=== PATIENT | female | born 1965 | race Caucasian/White ===

== ENCOUNTER → 2019-08-08 | Outpatient (CLI) | payer BC ==
--- NOTE | 2019-08-08 17:58 | US ---
EXAMINATION TYPE: US venous doppler duplex LE DATE OF EXAM: 08/08/2019 5:43 PM COMPARISON: NONE CLINICAL HISTORY: I82.90 Acute embolism and thrombosis of unspecified vein. Edema bilateral legs, wor se on the left SIDE PERFORMED: Bilateral TECHNIQUE: The lower extremity deep venous system is examined utilizing real time linear array sonog red with graded compression, doppler sonography and color-flow sonography. VESSELS IMAGED: External Iliac Vein (EIV) Common Femoral Vein Deep Femoral Vein Greater Saphenous Vein * Femoral Vein Popliteal Vein Small Saphenous Vein * Proximal Calf Veins (* superficial vessels) Right Leg: No evidence of DVT Left Leg: No evidence of DVT IMPRESSION: 1. Bilateral lower extremity ultrasound negative for deep venous thrombosis.
== END | disposition home or self-care (01) ==
LOC: U 17:02
PROVIDERS: ATTEND Podiatrist Foot & Ankle Surgery
DX: I82.403 Acute embolism and thrombosis of unspecified deep veins of lower extremity, bilateral (principal)
CPT/HCPCS: 93970

== ENCOUNTER 2022-01-11 09:05 | Day surgery (SDC) | payer BC, OTHER ==
[2022-01-10 11:14] VITALS: BMI 40.0
[~2022-01-11 09:05] MED LIST: ALPRAZolam 0.25 MG TAB PO PRN; ALPRAZolam 0.5 MG TAB PO PRN; ASPIRIN 325 MG TAB PO STA; ATORVASTATIN 80 MG TAB PO STA; HEPARIN SODIUM,PORCINE 10,000 UNIT in SODIUM CHLORIDE 0.9% 1,000 ML IRRIGATION PRN; HEPARIN SODIUM,PORCINE 2,500 UNIT in SODIUM CHLORIDE 0.9% 250 ML IRRIGATION PRN; NITROGLYCERIN SL TABS 0.4 MG TAB SUBLINGUAL PRN
[2022-01-11 09:33] LABS: Glucose,Whole Blood 89 mg/dL (70-110)
[2022-01-11] MEDS ORDERED: SODIUM CHLORIDE 0.9% 1,000 ML IV ONE (09:55)
[2022-01-11] MEDS: SODIUM CHLORIDE 0.9% 1,000 ML in EMPTY BAG 1 BAG IV SCH ×3 (09:57→21:43)
[2022-01-11] MEDS ORDERED: fentaNYL (PF) 50 MCG/ML 2 ML AMP IV ONE (12:04)
[2022-01-11] MEDS ORDERED: LIDOCAINE 1% INJ 10MG/ML (30 ML VIAL-PF) SQ ONE (12:04)
[2022-01-11] MEDS ORDERED: MIDAZOLAM 2 MG/2 ML VIAL IV ONE (12:04)
[2022-01-11] MEDS ORDERED: VERAPAMIL SYRINGE (5 MG/10 ML) INTRAARTER ONE (12:08)
[2022-01-11] MEDS ORDERED: HEPARIN SODIUM 1,000 UN/ML (10ML VL) IV ONE (12:10)
[2022-01-11] MEDS ORDERED: IOPAMIDOL-370 125ML BTL INJ ONE (12:44)
[2022-01-11] MEDS ORDERED: IOPAMIDOL-370 100ML BTL INJ ONE (13:12)
[2022-01-11] MEDS ORDERED: RX INFO: IV CONTRAST WAS GIVEN 1 EACH MISC MISCELLANE PRN (13:51)
[2022-01-11] MEDS ORDERED: DEXTROSE 50% SYRINGE 50 ML IVP PRN ×4 (14:06→14:12)
[2022-01-11 14:16] LABS: Glucose,Whole Blood 68 mg/dL (70-110)
[2022-01-11 14:37] LABS: Glucose,Whole Blood 71 mg/dL (70-110)
[2022-01-11 15:09] LABS: Basophils % (A) 0 %; Eosinophils # (A) 0.2 k/uL (0-0.7); Eosinophils % (A) 3 %; HCT 33.7 % (34.0-46.0); HGB 10.4 gm/dL (11.4-16.0); Hypochromasia Moderate; Lymphocytes # (A) 2.4 k/uL (1.0-4.8); Lymphocytes % (A) 39 %; MCH 30.6 pg (25.0-35.0); MCHC 30.9 g/dL (31.0-37.0); MCV 98.8 fL (80.0-100.0); Mean Platelet Volume 9.1; Monocytes # (A) 0.4 k/uL (0-1.0); Monocytes % (A) 6 %; Neutrophils % (A) 49 %; Platelet Count 247 k/uL (150-450); RBC 3.41 m/uL (3.80-5.40); RDW 13.6 % (11.5-15.5)
[2022-01-11 15:18] LABS: ALT 27 U/L (4-34); AST 25 U/L (14-36); African American GFR (CKD) 7 (>60 ml/min/1.73 sqM); Albumin 3.9 g/dL (3.5-5.0); Albumin/Globulin Ratio 1.6; Alkaline Phosphatase 61 U/L (38-126); Anion Gap 15 mmol/L; Blood Urea Nitrogen 67 mg/dL (7-17); Calcium 9.1 mg/dL (8.4-10.2); Carbon Dioxide 24 mmol/L (22-30); Chloride 103 mmol/L (98-107); Globulin 2.4 g/dL; Glucose 60 mg/dL (74-99); Non-African American GFR(CKD) 6 (>60 ml/min/1.73 sqM); Potassium 4.7 mmol/L (3.5-5.1); Sodium 142 mmol/L (137-145); Total Bilirubin 0.2 mg/dL (0.2-1.3); Total Protein 6.3 g/dL (6.3-8.2)
[2022-01-11 17:14] LABS: Glucose,Whole Blood 132 mg/dL (70-110)
[2022-01-11] MEDS: SODIUM CHLORIDE 0.9% 1,000 ML IV SCH (18:15)
[2022-01-11] MEDS: INSULIN ASPART (NovoLOG) 100 UNIT/ML VIAL SQ SCH ×2 (18:16→20:43)
[2022-01-11] MEDS: SODIUM BICARBONATE TAB 650 MG TAB PO SCH ×2 (18:34→20:44)
[2022-01-11] MEDS: carvediloL 12.5 MG TAB PO SCH (18:34)
[2022-01-11 20:22] LABS: Glucose,Whole Blood 165 mg/dL (70-110)
[2022-01-11] MEDS: hydrALAZINE HCL 50 MG TAB PO SCH (20:43)
[2022-01-11] MEDS: FUROSEMIDE 40 MG TAB PO SCH (20:44)
[2022-01-11] MEDS: PARoxetine 20 MG TAB PO SCH (20:44)
[2022-01-11] MEDS ORDERED: INSULIN DETEMIR (LEVEMIR) 100 UNIT/ML SYR SQ SCH (21:00)
[2022-01-12 07:12] LABS: Glucose,Whole Blood 54 mg/dL (70-110)
[2022-01-12 08:06] LABS: Glucose,Whole Blood 81 mg/dL (70-110)
[2022-01-12] MEDS: INSULIN ASPART (NovoLOG) 100 UNIT/ML VIAL SQ SCH ×3 (08:22→19:44)
[2022-01-12 08:32] VITALS: RESP 18
[2022-01-12] MEDS ORDERED: lisinopriL 10 MG TAB PO SCH (09:00)
[2022-01-12] MEDS ORDERED: TIMOLOL 0.5% OPHTH DROPS 5 ML BTL BOTH EYES SCH (09:00)
[2022-01-12] MEDS ORDERED: SPIRONOLACTONE 25 MG TAB PO SCH (09:00)
[2022-01-12] MEDS ORDERED: prednisoLONE ACETATE 1% OPHTH DROPS 5 ML BTL BOTH EYES SCH (09:00)
[2022-01-12] MEDS ORDERED: ATORVASTATIN 20 MG TAB PO SCH (09:00)
[2022-01-12] MEDS ORDERED: amLODIPine 10 MG TAB PO SCH (09:00)
[2022-01-12] MEDS ORDERED: BRIMONIDINE TARTRATE 0.2% DROPS 5 ML BTL BOTH EYES SCH (09:00)
[2022-01-12] MEDS ORDERED: ASPIRIN 81 MG PO SCH (09:00)
[2022-01-12] MEDS ORDERED: PANTOPRAZOLE 40 MG TABLET PO SCH (09:00)
[2022-01-12] MEDS ORDERED: ATROPINE OPHTH SOLN 1% 5ML BTL BOTH EYES SCH (09:00)
[2022-01-12] MEDS: hydrALAZINE HCL 50 MG TAB PO SCH (09:21)
[2022-01-12] MEDS: PARoxetine 20 MG TAB PO SCH (09:21)
[2022-01-12] MEDS: SODIUM BICARBONATE TAB 650 MG TAB PO SCH ×3 (09:21→17:37)
[2022-01-12] MEDS: carvediloL 12.5 MG TAB PO SCH ×2 (09:21→17:37)
[2022-01-12] MEDS: FUROSEMIDE 40 MG TAB PO SCH (09:22)
[2022-01-12] MEDS: SODIUM CHLORIDE 0.9% 1,000 ML IV SCH (11:06)
[2022-01-12 12:21] LABS: Glucose,Whole Blood 128 mg/dL (70-110)
--- NOTE | 2022-01-12 14:08 | P.NPCON ---
History of Present Illness - Reason for Consult end stage renal disease - History of Present Illness Patient is a 56-year-old female with end-stage renal disease maintained on peritoneal dialysis. Patient was admitted to the hospital for cardiac catheterization which was performed. Detailed results are not available at this time. Patient has history of hypertension, type 2 diabetes, hypertension. No complaints of chest pains or shortness of breath currently No history of nausea vomiting abdominal pain or diarrhea. Review of Systems As per HPI. Past Medical History Past Medical History: CVA/TIA, Diabetes Mellitus, Dialysis, Eye Disorder, Hyperlipidemia, Hypertension, Renal Disease Additional Past Medical History / Comment(s): NIGHTLY CAPD. BLIND-DIABETIC RETINOPATHY. HX CVA AGE 39-SLIGHT LT SIDED WEAKNESS History of Any Multi-Drug Resistant Organisms: None Reported Past Surgical History: Cholecystectomy, Joint Replacement, Tubal Ligation Additional Past Surgical History / Comment(s): ERIK BX. PARTIAL KNEE REPLACEMENT (SIDE UNKNOWN). COLONOSCOPY. BILAT CATARACTS REMOVED WITH LENS IMPLANTS. PERITONEAL DIALYSIS CATH. MULTIPLE EYE SURGERIES Past Anesthesia/Blood Transfusion Reactions: No Reported Reaction Past Psychological History: Anxiety Smoking Status: Never smoker Past Alcohol Use History: None Reported Past Drug Use History: None Reported - Past Family History Father Family Medical History: Cancer Mother Family Medical History: Cancer Medications and Allergies Home Medications Medication Instructions Recorded Confirmed Type Atorvastatin [Lipitor] 20 mg PO DAILY 01/10/22 01/10/22 History Atropine Sulfate [Atropine Sulfate 1 applic BOTH EYES DAILY 01/10/22 01/11/22 History 1% Ophth Oint] Brimonidine Tartrate/Timolol 1 drop BOTH EYES DAILY 01/10/22 01/11/22 History [Combigan 0.2%-0.5% Eye Drops] Furosemide [Lasix] 40 mg PO BID 01/10/22 01/10/22 History Insulin Aspart [NovoLOG] 10 - 12 units SQ TID-W/MEALS 01/10/22 01/11/22 History Insulin Glargine,Hum.rec.anlog 40 units SQ HS 01/10/22 01/11/22 History [Lantus Solostar Pen] Omeprazole 40 mg PO DAILY 01/10/22 01/10/22 History PARoxetine [Paxil] 20 mg PO BID 01/10/22 01/10/22 History Prednisolone Acetate/Pf 1 drop BOTH EYES DAILY 01/10/22 01/11/22 History [Prednisolone Acet 1% Eye Drop] Sodium Bicarbonate Tab 650 mg PO ACHS 01/10/22 01/10/22 History Spironolactone 25 mg PO DAILY 01/10/22 01/10/22 History amLODIPine [Norvasc] 10 mg PO DAILY 01/10/22 01/10/22 History calcitrioL [Calcitriol] 0.25 mcg PO MOWEFR 01/10/22 01/10/22 History carvediloL [Coreg] 25 mg PO BID 01/10/22 01/10/22 History hydrALAZINE HCL [Apresoline] 50 mg PO BID 01/10/22 01/10/22 History lisinopriL [Zestril] 10 mg PO DAILY 01/10/22 01/11/22 History Aspirin EC [Ecotrin] 325 mg PO ONCE 01/11/22 01/11/22 History Allergies Allergy/AdvReac Type Severity Reaction Status Date / Time No Known Allergies Allergy Verified 01/11/22 09:46 Physical Exam Vitals: Vital Signs Temp Pulse Resp BP BP BP Pulse Ox 01/12/22 07:00 97.6 F 73 18 174/80 93 L 01/12/22 03:00 97.5 F L 68 17 136/82 96 01/11/22 19:11 97.8 F 74 16 167/78 97 01/11/22 16:30 69 17 147/80 99 01/11/22 15:31 67 17 152/88 96 01/11/22 15:02 69 16 179/87 98 01/11/22 14:31 71 16 163/77 96 01/11/22 14:16 67 17 170/76 96 Intake and Output 01/11/22 01/12/22 01/12/22 22:59 06:59 14:59 Intake Total 118 Balance 118 Intake: Oral 118 Other: Voiding Method Toilet Toilet # Voids 1 1 Awake, comfortable, not in any acute distress Examination of the heart S1 and S2 Examination of the lungs bilateral breath sounds are heard Abdomen is soft nontender obese Examination of the lower extremity shows no significant edema 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 End-stage renal disease on peritoneal dialysis 2. Status post cardiac cath 3. CK D mineral bone disorder 4. Hypertension with C daily stage V Plan: Start manual exchanges and patient can resume her cyclers tonight. Continue current home medications DC IV fluids next Thank you for the consultation. We will continue to follow the patient with you during her hospitalization
[2022-01-12] MEDS: SODIUM CHLORIDE 0.9% 1,000 ML in EMPTY BAG 1 BAG IV SCH (14:26)
[2022-01-12] MEDS: DIALYSIS (PERIT 1.5%) 2,500 ML 37.5 G/2,500 ML BAG INTRAPERIT SCH ×2 (14:27→18:13)
[2022-01-12 14:58] VITALS: BP 156/78; PULSE 80; TEMP 98.3
[2022-01-12 17:19] LABS: Glucose,Whole Blood 176 mg/dL (70-110)
--- NOTE | 2022-01-12 22:46 | CONS ---
CONSULTATION PROCEDURES PERFORMED: Left heart catheterization and coronary angiogram. HOSPITAL COURSE: This is 56-year-old lady with history of end-stage renal disease on peritoneal dialysis, who underwent a stress test as part of preop cardiac evaluation and that was abnormal showing ischemia in the anterior wall. The patient did not undergo cardiac catheterization at that time as she had renal failure, but was not started on dialysis yet. Currently, she is on peritoneal dialysis, hence decided to proceed with cardiac catheterization. We initially attempted a right radial artery catheterization, but because of technical challenges and inability to engage the left coronary artery, we performed a right femoral arterial access and cardiac catheterization that way but she has coronary artery disease. She did not have significant obstructive CAD needing any interventions at this time and our plan is to treat her with medical therapy. This morning she is doing well. Her blood pressure is elevated. We just give her morning medications. Unfortunately, she did not receive any peritoneal dialysis in spite of my communication to do peritoneal dialysis yesterday afternoon. I am going to do peritoneal dialysis today and then she will go home after that. PHYSICAL EXAMINATION: VITAL SIGNS: She is afebrile. Heart rate is 73 beats per minute. Blood pressure is 170/82, respiratory rate is 18, O2 saturation is 93% on room air. CHEST: Exam reveals good air entry bilaterally. HEART: Exam reveals first and second heart sounds. No gallop. GENITOURINARY: Right radial artery access site appears normal. Right femoral arterial access site is free of bleeding, bruit, hematoma. Foot pulses are intact. LABORATORY DATA: We do not have any labs from this morning. DISCHARGE MEDICATION: She will go home on the medications that she came on with. FOLLOWUP: She will be followed up in my office in 2 weeks time. The patient will be dialyzed prior to discharge. MMODL / IJN: [id number] /
--- NOTE | 2022-01-12 23:46 | CC ---
CARDIAC CATHETERIZATION REPORT INDICATION: Abnormal stress test. PROCEDURE NOTE: After obtaining informed consent, left heart catheterization and coronary angiogram were performed using right radial and right femoral arterial axis. I initially obtained right radial artery access using a Seldinger technique, and catheters and wires were floated into the ascending aorta under fluoroscopic guidance. The patient received verapamil and IV heparin per protocol. We were able to engage the right coronary artery using the right Josephine catheter and hemodynamics were also obtained the same day. However, in spite of going through multiple catheter exchanges, we could not engage the left coronary artery selectively. Following my attempts, Dr. Reagan, the on-call project construction assistant manager, also came and tried and he could not get selective pictures of the left coronary artery. He used a guide and multiple different catheters, details of which will be found in the slab off mill tender procedure note. After this, I obtained right femoral arterial access uneventfully and completed the procedure that way and optimal angiograms were obtained. The patient tolerated the procedure well without any obvious immediate complications. A femoral angiogram was performed and Angio-Seal was deployed for hemostasis. Patient received moderate conscious sedation. Total sedation time was 16 minutes. Right radial artery access, the patient had a TR band placed over the right radial artery for hemostasis. FINDINGS: 1. Hemodynamics: Left ventricular end-diastolic pressure is 14 mm. There is no significant gradient across the aortic valve. 2. Left ventriculogram: Left ventriculogram was not performed. 3. Angiographic data: a.Right coronary artery: Right coronary artery appears calcified. There is a focal area of stenosis involving the ostial portion of the PLV branch. It has moderate to severe stenosis. b.Left coronary artery: Left main coronary artery appears calcified but is free of significant stenosis, divides into left anterior descending coronary artery and circumflex coronary artery. c.Circumflex coronary artery is a codominant system that is calcified, it shows [id number] atherosclerotic plaque involving the OM branch without focal areas of stenosis. d.LAD shows a 30% to 40% stenosis in its midportion and involving the diagonal branch, but again no focal stenotic lesions. CONCLUSIONS: 1. Heavily calcified coronary arteries. 2. Ksxshwwg-[id number] stenosis involving the ostial portion of the posterior left ventricular branch. 3. Nxbo-[id number] disease involving circumflex coronary artery and left anterior descending. PLAN: Patient will be treated with optimal medical therapy. MMODL / IJN: [id number] /
== END 2022-01-12 19:30 | disposition home or self-care (01) ==
LOC: CATHCVL 09:05 → 6NMEDSUR 13:22 → CATHCVL 01-12 19:30
PROVIDERS: ATTEND Internal Medicine Cardiovascular Disease
DX: I25.10 Atherosclerotic heart disease of native coronary artery without angina pectoris (principal)
CPT/HCPCS: 93458; 80053; 85025; C1769 ×3; C1760; C1887 ×2; C1894 ×2; J2250; J2001; A4722; J3010; J1644; Q9967 ×2

== ENCOUNTER 2022-02-21 02:43 | Observation (INO) | payer OTHER ==
--- NOTE | 2022-02-21 04:56 | ED ---
General Adult HPI - General Chief complaint: Weakness Stated complaint: Chest pain, SOB Time Seen by Provider: 02/21/22 02:56 Source: patient Mode of arrival: wheelchair - History of Present Illness Initial comments: 56-year-old female presents emergency department with reported chest pain with radiation into the neck. States her symptoms started last week. She was having bilateral neck discomfort and ended up seeing her chiropractor and PCP. PCP performed x-rays of her neck which were read as negative. They placed her on Tylenol 3. She saw her chiropractor on Sunday. States that she did have some improvement in her pain on Sunday. Had a repeat appointment with the chiropractor on Sunday and states that this exacerbated her symptoms. She describes the pain as an epigastric burning discomfort which radiates into the bilateral aspects of her neck. No provocative factors. She admits to associated generalized weakness. No fevers. No changes in her bowel habits. She is a peritoneal dialysis patient and continues to make urine. Last night the patient lay down and did 2 cycles of her dialysis. Pain was so intense that she had to stop and decided to come into the ER for evaluation. She had a heart cath 2 weeks ago which was negative for critical stenosis. No alleviating, precipitating or modifying factors - Related Data Home Medications Medication Instructions Recorded Confirmed Atorvastatin [Lipitor] 20 mg PO DAILY 01/10/22 02/21/22 Atropine Sulfate [Atropine Sulfate 1 applic RIGHT EYE DAILY PRN 01/10/22 1% Ophth Oint] Brimonidine Tartrate/Timolol 1 drop RIGHT EYE BID 01/10/22 02/21/22 [Combigan 0.2%-0.5% Eye Drops] PARoxetine [Paxil] 20 mg PO BID 01/10/22 02/21/22 amLODIPine [Norvasc] 10 mg PO DAILY 01/10/22 02/21/22 calcitrioL [Calcitriol] 0.25 mcg PO MOWEFR 01/10/22 02/21/22 carvediloL [Coreg] 25 mg PO BID 01/10/22 02/21/22 Acetaminophen [Tylenol] 325 mg PO Q4H PRN 02/21/22 02/21/22 Furosemide [Lasix] 80 mg PO BID 02/21/22 02/21/22 Insulin Aspart [NovoLOG Flexpen] See Protocol SQ AC-TID 02/21/22 02/21/22 L.acidoph,Paracasei, B.lactis 1 cap PO Q2D 02/21/22 02/21/22 [Probiotic] Lanthanum Carbonate [Lanthanum 1,000 mg PO AC-TID 02/21/22 02/21/22 Carbonate Chew] Lanthanum Carbonate [Lanthanum 500 mg PO DIRECTED PRN 02/21/22 02/21/22 Carbonate Chew] Previous Rx's Medication Instructions Recorded Pantoprazole [Protonix] 40 mg PO AC-BID #60 tab 02/23/22 Insulin Glargine,Hum.rec.anlog 26 units SQ HS #0 02/24/22 [Lantus Solostar Pen] Metoclopramide [Reglan] 10 mg PO AC-TID #42 tab 02/24/22 Allergies Allergy/AdvReac Type Severity Reaction Status Date / Time No Known Allergies Allergy Verified 02/21/22 08:50 Review of Systems ROS Statement: Those systems with pertinent positive or pertinent negative responses have been documented in the HPI. ROS Other: All systems not noted in ROS Statement are negative. Past Medical History Past Medical History: CVA/TIA, Diabetes Mellitus, Dialysis, Eye Disorder, Hyperlipidemia, Hypertension, Renal Disease Additional Past Medical History / Comment(s): NIGHTLY CAPD. BLIND-DIABETIC R ETINOPATHY. HX CVA AGE 39-SLIGHT LT SIDED WEAKNESS History of Any Multi-Drug Resistant Organisms: None Reported Past Surgical History: Cholecystectomy, Joint Replacement, Tubal Ligation Additional Past Surgical History / Comment(s): KIDENY BX. PARTIAL KNEE REPLACEMENT (SIDE UNKNOWN). COLONOSCOPY. BILAT CATARACTS REMOVED WITH LENS IMPLANTS. PERITONEAL DIALYSIS CATH. MULTIPLE EYE SURGERIES Past Anesthesia/Blood Transfusion Reactions: No Reported Reaction Past Psychological History: Anxiety Smoking Status: Never smoker Past Alcohol Use History: None Reported Past Drug Use History: None Reported - Past Family History Father Family Medical History: Cancer Mother Family Medical History: Cancer General Exam General appearance: alert, in no apparent distress Head exam: Present: atraumatic, normocephalic, normal inspection Eye exam: Present: normal appearance, PERRL, EOMI. Absent: scleral icterus, conjunctival injection, periorbital swelling ENT exam: Present: normal exam, mucous membranes moist Neck exam: Present: normal inspection. Absent: tenderness, meningismus, lymphadenopathy Respiratory exam: Present: normal lung sounds bilaterally. Absent: respiratory distress, wheezes, rales, rhonchi, stridor Cardiovascular Exam: Present: regular rate, normal rhythm, normal heart sounds. Absent: systolic murmur, diastolic murmur, rubs, gallop, clicks GI/Abdominal exam: Present: soft, normal bowel sounds, other (catheter in place left abdomen. drainage is clear). Absent: distended, tenderness, guarding, rebound, rigid Extremities exam: Present: normal inspection, full ROM, normal capillary refill. Absent: tenderness, pedal edema, joint swelling, calf tenderness Back exam: Present: normal inspection Neurological exam: Present: alert, oriented X3, CN II-XII intact Psychiatric exam: Present: normal affect, normal mood Skin exam: Present: warm, dry, intact, normal color. Absent: rash Course Vital Signs 02/21/22 02/21/22 02/21/22 02:47 03:06 05:17 Temperature 98 F 98.2 F 98.4 F Pulse Rate 71 69 70 Respiratory 18 18 16 Rate Blood Pressure 131/74 118/93 152/76 O2 Sat by Pulse 98 100 96 Oximetry 02/21/22 02/21/22 07:10 09:55 Temperature Pulse Rate 71 68 Respiratory 18 18 Rate Blood Pressure 141/76 154/90 O2 Sat by Pulse 93 L 95 Oximetry EKG Findings - EKG Comments: EKG Findings:: EKG demonstrates sinus rhythm with a rate of 67. IL interval 153. QRS 84. QTC of 417. Inverted T waves in 2, 3, aVF. No acute ST segment elevations. EKG was interpreted by myself Medical Decision Making - Medical Decision Making Arrival patient was placed into room 9. Thorough history and physical exam is performed. She is placed on continuous pulse ox and cardiac monitoring. 12- lead EKG was obtained. IV is established laboratory studies are conducted. Laboratory studies are reviewed by myself. BUN 109. Creatinine 11.9. Remainin g labs within normal limits. I did call and speak with radiology in regards to performing imaging studies on the patient using contrast. Dr. Barrow recommends CT without contrast imaging due to her peritoneal dialysis status. Imaging is performed which is negative for any acute process. Patient did receive 4 mg of morphine for her chest pain and reports improvement. I did discuss diagnosis, differential and treatment options. Patient agreeable to admission for cardiac evaluation. I will also place GI consult. Patient remained in stable condition awaiting a bed on the floor - Lab Data Result diagrams: 02/22/22 04:14 02/22/22 04:14 Lab Results 02/21/22 02/21/22 02/21/22 Range/Units 05:00 05:00 05:00 WBC 11.7 H (3.8-10.6) k/uL RBC 3.58 L (3.80-5.40) m/uL Hgb 11.2 L (11.4-16.0) gm/dL Hct 35.4 (34.0-46.0) % MCV 99.1 (80.0-100.0) fL MCH 31.2 (25.0-35.0) pg MCHC 31.5 (31.0-37.0) g/dL RDW 13.9 (11.5-15.5) % Plt Count 326 (150-450) k/uL MPV 9.7 Neutrophils % 88 % Lymphocytes % 8 % Monocytes % 4 % Eosinophils % 0 % Basophils % 0 % Neutrophils # 10.3 H (1.3-7.7) k/uL Lymphocytes # 0.9 L (1.0-4.8) k/uL Monocytes # 0.4 (0-1.0) k/uL Eosinophils # 0.0 (0-0.7) k/uL Basophils # 0.0 (0-0.2) k/uL Hypochromasia Moderate PT 9.6 (9.0-12.0) sec INR 0.9 (<1.2) APTT 25.1 (22.0-30.0) sec Sodium 140 (137-145) mmol/L Potassium 4.8 (3.5-5.1) mmol/L Chloride 97 L (98-107) mmol/L Carbon Dioxide 22 (22-30) mmol/L Anion Gap 21 mmol/L BUN 109 H* (7-17) mg/dL Creatinine 11.92 H* (0.52-1.04) mg/dL Est GFR (CKD-EPI)AfAm 4 (>60 ml/min/1.73 sqM) Est GFR (CKD-EPI)NonAf 3 (>60 ml/min/1.73 sqM) Glucose 150 H (74-99) mg/dL Plasma Lactic Acid Mejia (0.7-2.0) mmol/L Calcium 9.3 (8.4-10.2) mg/dL Total Bilirubin 0.5 (0.2-1.3) mg/dL AST 18 (14-36) U/L ALT 22 (4-34) U/L Alkaline Phosphatase 68 (38-126) U/L Troponin I (0.000-0.034) ng/mL Total Protein 6.9 (6.3-8.2) g/dL Albumin 4.3 (3.5-5.0) g/dL Lipase 266 (23-300) U/L Coronavirus (PCR) (Not Detectd) Influenza Type A RNA (Not Detectd) Influenza Type B (PCR) (Not Detectd) 02/21/22 02/21/22 02/21/22 Range/Units 05:00 05:00 05:04 WBC (3.8-10.6) k/uL RBC (3.80-5.40) m/uL Hgb (11.4-16.0) gm/dL Hct (34.0-46.0) % MCV (80.0-100.0) fL MCH (25.0-35.0) pg MCHC (31.0-37.0) g/dL RDW (11.5-15.5) % Plt Count (150-450) k/uL MPV Neutrophils % % Lymphocytes % % Monocytes % % Eosinophils % % Basophils % % Neutrophils # (1.3-7.7) k/uL Lymphocytes # (1.0-4.8) k/uL Monocytes # (0-1.0) k/uL Eosinophils # (0-0.7) k/uL Basophils # (0-0.2) k/uL Hypochromasia PT (9.0-12.0) sec INR (<1.2) APTT (22.0-30.0) sec Sodium (137-145) mmol/L Potassium (3.5-5.1) mmol/L Chloride (98-107) mmol/L Carbon Dioxide (22-30) mmol/L Anion Gap mmol/L BUN (7-17) mg/dL Creatinine (0.52-1.04) mg/dL Est GFR (CKD-EPI)AfAm (>60 ml/min/1.73 sqM) Est GFR (CKD-EPI)NonAf (>60 ml/min/1.73 sqM) Glucose (74-99) mg/dL Plasma Lactic Acid Mejia 0.9 (0.7-2.0) mmol/L Calcium (8.4-10.2) mg/dL Total Bilirubin (0.2-1.3) mg/dL AST (14-36) U/L ALT (4-34) U/L Alkaline Phosphatase (38-126) U/L Troponin I 0.030 (0.000-0.034) ng/mL Total Protein (6.3-8.2) g/dL Albumin (3.5-5.0) g/dL Lipase (23-300) U/L Coronavirus (PCR) (Not Detectd) Influenza Type A RNA Not Detected (Not Detectd) Influenza Type B (PCR) Not Detected (Not Detectd) 02/21/22 Range/Units 05:04 WBC (3.8-10.6) k/uL RBC (3.80-5.40) m/uL Hgb (11.4-16.0) gm/dL Hct (34.0-46.0) % MCV (80.0-100.0) fL MCH (25.0-35.0) pg MCHC (31.0-37.0) g/dL RDW (11.5-15.5) % Plt Count (150-450) k/uL MPV Neutrophils % % Lymphocytes % % Monocytes % % Eosinophils % % Basophils % % Neutrophils # (1.3-7.7) k/uL Lymphocytes # (1.0-4.8) k/uL Monocytes # (0-1.0) k/uL Eosinophils # (0-0.7) k/uL Basophils # (0-0.2) k/uL Hypochromasia PT (9.0-12.0) sec INR (<1.2) APTT (22.0-30.0) sec Sodium (137-145) mmol/L Potassium (3.5-5.1) mmol/L Chloride (98-107) mmol/L Carbon Dioxide (22-30) mmol/L Anion Gap mmol/L BUN (7-17) mg/dL Creatinine (0.52-1.04) mg/dL Est GFR (CKD-EPI)AfAm (>60 ml/min/1.73 sqM) Est GFR (CKD-EPI)NonAf (>60 ml/min/1.73 sqM) Glucose (74-99) mg/dL Plasma Lactic Acid Mejia (0.7-2.0) mmol/L Calcium (8.4-10.2) mg/dL Total Bilirubin (0.2-1.3) mg/dL AST (14-36) U/L ALT (4-34) U/L Alkaline Phosphatase (38-126) U/L Troponin I (0.000-0.034) ng/mL Total Protein (6.3-8.2) g/dL Albumin (3.5-5.0) g/dL Lipase (23-300) U/L Coronavirus (PCR) Not Detected (Not Detectd) Influenza Type A RNA (Not Detectd) Influenza Type B (PCR) (Not Detectd) Disposition Clinical Impression: Chest pain, Epigastric pain Narrative: Chest pain Disposition: ADMITTED IP TO THIS HOSP Condition: Stable Is patient prescribed a controlled substance at d/c from ED?: No Time of Disposition: 08:05 Decision to Admit Reason: Admit from EC Decision Date: 02/21/22 Decision Time: 08:05
[2022-02-21] MEDS ORDERED: MORPHINE SULFATE 4 MG/ML SYRINGE IVP STA (04:57)
[2022-02-21] MEDS ORDERED: ONDANSETRON 4 MG/2 ML VIAL IVP STA (04:59)
[2022-02-21 05:24] LABS: Basophils % (A) 0 %; Eosinophils % (A) 0 %; HCT 35.4 % (34.0-46.0); HGB 11.2 gm/dL (11.4-16.0); Hypochromasia Moderate; Lymphocytes # (A) 0.9 k/uL (1.0-4.8); Lymphocytes % (A) 8 %; MCH 31.2 pg (25.0-35.0); MCHC 31.5 g/dL (31.0-37.0); MCV 99.1 fL (80.0-100.0); Mean Platelet Volume 9.7; Monocytes # (A) 0.4 k/uL (0-1.0); Monocytes % (A) 4 %; Neutrophils # (A) 10.3 k/uL (1.3-7.7); Neutrophils % (A) 88 %; Platelet Count 326 k/uL (150-450); RBC 3.58 m/uL (3.80-5.40); RDW 13.9 % (11.5-15.5); WBC 11.7 k/uL (3.8-10.6)
[2022-02-21 05:27] LABS: Albumin 4.3 g/dL (3.5-5.0); Calcium 9.3 mg/dL (8.4-10.2); Potassium 4.8 mmol/L (3.5-5.1); Total Bilirubin 0.5 mg/dL (0.2-1.3); Total Protein 6.9 g/dL (6.3-8.2)
[2022-02-21 05:28] LABS: INR 0.9 (<1.2); Partial Thromboplastin Time 25.1 sec (22.0-30.0); Prothrombin Time 9.6 sec (9.0-12.0)
--- NOTE | 2022-02-21 05:59 | CT ---
EXAMINATION TYPE: CT ChestAbdPelvis wo con DATE OF EXAM: 02/21/2022 COMPARISON: None HISTORY: SOB, weakness, burning epigastric pain. CT DLP: 975.4 mGycm Automated exposure control for dose reduction was used. Images obtained from the thoracic inlet to the floor the pelvis with no contrast. There is some pre-e xisting contrast material in the large bowel. The lungs are clear of consolidation. There is minimal subsegmental atelectasis at the left lung base . No pleural effusion. No mediastinal adenopathy. Heart size is normal. No pericardial effusion. Ther e are no hilar masses. There is some coronary artery calcification. Liver spleen pancreas appear intact. There is distended fluid filled stomach. There are clips from ch olecystectomy. The bowel gas are not dilated. No evidence of pancreatitis. There is atherosclerotic m oderate vascular calcification in the abdomen. There is no adrenal mass. Kidneys have normal size. No hydronephrosis. Ureters are not dilated. No re troperitoneal adenopathy. Bladder distends smoothly. No free fluid in the pelvis. No pelvic mass. [place] is anteverted. The thoracic and lumbar vertebra have normal alignment. No compression fracture. The sternum is intac t. No evidence of hip fracture. The bony pelvis is intact. There is no mesenteric edema. No ascites or free air. No sign of a bowel obstruction. Appendix is pos terior and appears normal. There is a broad-based umbilical hernia that contains fat. There is perito narciso dialysis catheter noted. IMPRESSION: No acute abnormality in the abdomen and pelvis. Normal appendix. No evidence of pancreatitis. Extensi ve atherosclerotic vascular disease in the abdomen pelvis. Minimal scarring or subsegmental atelectasis at the left lung base. No suspicious pulmonary mass.
[2022-02-21] MEDS ORDERED: NALOXONE 0.4 MG/ML 1 ML VIAL IV PRN (08:07)
[2022-02-21] MEDS: SODIUM CHLORIDE 0.9% 1,000 ML IV SCH ×2 (09:20→20:30)
[2022-02-21 09:28] LABS: Glucose,Whole Blood 159 mg/dL (70-110)
[2022-02-21] MEDS ORDERED: ATROPINE OPHTH SOLN 1% 5ML BTL RIGHT EYE PRN (10:01)
[2022-02-21] MEDS ORDERED: PANTOPRAZOLE 40 MG TABLET PO SCH (10:15)
[2022-02-21] MEDS: ASPIRIN 81 MG PO SCH (11:13)
[2022-02-21] MEDS: carvediloL 12.5 MG TAB PO SCH ×2 (11:14→21:32)
[2022-02-21] MEDS: PARoxetine 20 MG TAB PO SCH ×2 (11:14→20:28)
[2022-02-21] MEDS: amLODIPine 10 MG TAB PO SCH (11:14)
[2022-02-21] MEDS: ATORVASTATIN 20 MG TAB PO SCH (11:14)
[2022-02-21] MEDS: BRIMONIDINE TARTRATE 0.2% DROPS 5 ML BTL RIGHT EYE SCH ×2 (11:15→20:27)
[2022-02-21] MEDS: TIMOLOL 0.5% OPHTH DROPS 5 ML BTL RIGHT EYE SCH ×2 (11:17→20:27)
[2022-02-21] MEDS: prednisoLONE ACETATE 1% OPHTH DROPS 5 ML BTL RIGHT EYE SCH ×3 (11:17→21:33)
[2022-02-21] MEDS: CALCIUM CARBONATE LIQUID 500 MG/5 ML CUP PO SCH ×2 (11:34→18:33)
[2022-02-21] MEDS ORDERED: DIALYSIS (PERIT 1.5%) 2,500 ML 37.5 G/2,500 ML BAG INTRAPERIT SCH ×2 (12:00)
--- NOTE | 2022-02-21 12:05 | P.NPCON ---
History of Present Illness - Reason for Consult end stage renal disease - History of Present Illness Patient is a 56-year-old female with end-stage renal disease maintained on peritoneal dialysis. She is admitted to the hospital with complaints of chest pain and increased weakness. Patient denies any abdominal pain. She states that her dialysis fluid has been clear. Troponin was negative Patient has been cleared from cardiology standpoint. The stress test has been ordered. No history of nausea vomiting or abdominal pain, cough or fever. Review of Systems As per HPI Past Medical History Past Medical History: CVA/TIA, Diabetes Mellitus, Dialysis, Eye Disorder, Hyperlipidemia, Hypertension, Renal Disease Additional Past Medical History / Comment(s): NIGHTLY CAPD. BLIND-DIABETIC RETINOPATHY. HX CVA AGE 39-SLIGHT LT SIDED WEAKNESS History of Any Multi-Drug Resistant Organisms: None Reported Past Surgical History: Cholecystectomy, Joint Replacement, Tubal Ligation Additional Past Surgical History / Comment(s): ERIK BX. PARTIAL KNEE REPLACEMENT (SIDE UNKNOWN). COLONOSCOPY. BILAT CATARACTS REMOVED WITH LENS IMPLANTS. PERITONEAL DIALYSIS CATH. MULTIPLE EYE SURGERIES Past Anesthesia/Blood Transfusion Reactions: No Reported Reaction Smoking Status: Never smoker - Past Family History Father Family Medical History: Cancer Additional Family Medical History / Comment(s): Laryngeal cancer. Mother Family Medical History: Cancer Additional Family Medical History / Comment(s): Ovarian cancer Medications and Allergies Home Medications Medication Instructions Recorded Confirmed Type Atorvastatin [Lipitor] 20 mg PO DAILY 01/10/22 02/21/22 History Atropine Sulfate [Atropine Sulfate 1 applic RIGHT EYE DAILY PRN 01/10/22 02/21/22 History 1% Ophth Oint] Brimonidine Tartrate/Timolol 1 drop RIGHT EYE BID 01/10/22 02/21/22 History [Combigan 0.2%-0.5% Eye Drops] Insulin Glargine,Hum.rec.anlog 40 units SQ HS 01/10/22 02/21/22 History [Lantus Solostar Pen] Omeprazole 40 mg PO DAILY 01/10/22 02/21/22 History PARoxetine [Paxil] 20 mg PO BID 01/10/22 02/21/22 History Prednisolone Acetate/Pf 1 drop RIGHT EYE TID 01/10/22 02/21/22 History [Prednisolone Acet 1% Eye Drop] amLODIPine [Norvasc] 10 mg PO DAILY 01/10/22 02/21/22 History calcitrioL [Calcitriol] 0.25 mcg PO MOWEFR 01/10/22 02/21/22 History carvediloL [Coreg] 25 mg PO BID 01/10/22 02/21/22 History hydrALAZINE HCL [Apresoline] 50 mg PO TID 01/10/22 02/21/22 History lisinopriL [Zestril] 10 mg PO DAILY 01/10/22 02/21/22 History Acetaminophen [Tylenol] 325 mg PO Q4H PRN 02/21/22 02/21/22 History Docusate Oral Soln [Colace Oral 100 mg PO DAILY PRN 02/21/22 02/21/22 History Soln] Docusate [Colace] 100 mg PO DAILY PRN 02/21/22 02/21/22 History Furosemide [Lasix] 80 mg PO BID 02/21/22 02/21/22 History Insulin Aspart [NovoLOG Flexpen] See Protocol SQ AC-TID 02/21/22 02/21/22 History L.acidoph,Paracasei, B.lactis 1 cap PO Q2D 02/21/22 02/21/22 History [Probiotic] Lanthanum Carbonate [Lanthanum 1,000 mg PO AC-TID 02/21/22 02/21/22 History Carbonate Chew] Lanthanum Carbonate [Lanthanum 500 mg PO DIRECTED PRN 02/21/22 02/21/22 History Carbonate Chew] predniSONE See Taper PO DIRECTED 02/21/22 02/21/22 History Allergies Allergy/AdvReac Type Severity Reaction Status Date / Time No Known Allergies Allergy Verified 02/21/22 08:50 Physical Exam Vitals: Vital Signs Temp Pulse Pulse Resp BP BP Pulse Ox 02/21/22 10:22 97.6 F 68 16 144/78 96 02/21/22 09:55 68 18 154/90 95 02/21/22 07:10 71 18 141/76 93 L 02/21/22 05:17 98.4 F 70 16 152/76 96 02/21/22 03:06 98.2 F 69 18 118/93 100 02/21/22 02:47 98 F 71 18 131/74 98 Intake and Output 02/20/22 02/21/22 02/21/22 22:59 06:59 14:59 Other: Voiding Method CAPD Weight 86.183 kg 86.183 kg Patient is awake, comfortable, in no acute distress Examination of the heart S1 and S2 Examination of the lungs decreased breath sounds at the bases Abdomen is soft nontender Examination lower extremity shows trace edema right leg no significant edema noted in the left leg. RIGHT OF WAY BUYER exam grossly intact Results - Lab Results Most recent lab results Calcium 9.3 mg/dL (8.4-10.2) 02/21/22 05:00 02/21/22 05:00 02/21/22 05:00 Assessment and Plan Assessment: 1. End-stage renal disease on peritoneal dialysis 2. Chest pain no evidence of cardiac etiology. Stress test has been ordered 3. CK D mineral bone disorder 4. Hypertension with CK D stage IV Plan: Resume peritoneal dialysis. Increase UF 2.5% solution. Resume home meds including calcitriol Check PD fluid for cell count and culture next Thank you for the consultation. We will continue to follow the patient with you during her hospitalization.
[2022-02-21 12:18] LABS: Glucose,Whole Blood 184 mg/dL (70-110)
[2022-02-21] MEDS: DIALYSIS (PERIT 2.5%) 2,500 ML 62.5 G/2,500 ML BAG INTRAPERIT SCH (12:20)
[2022-02-21] MEDS: ACETAMINOPHEN TAB 325 MG TAB PO PRN (12:50)
[2022-02-21] MEDS ORDERED: DEXTROSE 50% SYRINGE 50 ML IVP PRN ×2 (14:01)
[2022-02-21 14:19] LABS: Glucose,Whole Blood 251 mg/dL (70-110)
[2022-02-21] MEDS: INSULIN ASPART (NovoLOG) 100 UNIT/ML VIAL SQ SCH ×3 (14:38→20:49)
[2022-02-21 15:05] VITALS: BMI 31.6
--- NOTE | 2022-02-21 15:22 | P.CONS ---
History of Present Illness - Reason for Consult Consult date: 02/21/22 Epigastric pain Requesting physician: Junaid Espinoza - Chief Complaint Chest pain - History of Present Illness This is a pleasant 56-year-old female who presented to the emergency department with complaints of weakness, chest pain, and pain radiating into her neck. Patient states the pain has been going on for the last 2 days duration. She has a past medical history including end-stage renal disease on peritoneal dialysis, coronary artery disease, blindness. Patient states symptoms started since last Sunday, which she is having intermittent pain with swallowing. She states is in the epigastric region. She states otherwise her pain is in her chest and across her chest and will radiate up to her neck as well. She states she feels increasingly weak as well and short of breath. States that she recently was having neck and back pain and went to see a chiropractor. Last Sunday she saw the chiropractor again for another adjustment and states the pain has been worse since then. She is tender to touch along her chest wall. She also had a cardiac catheterization approximately 2 weeks ago which she states that there was some narrowing but she did not have to undergo cyst stenting. She denies any difficulty with food getting stuck when she is swallowing, no nausea or vomiting. No previous EGD in the past or history of peptic ulcer disease. States she had a colonoscopy within the last 4 years done at [facility] which was normal. She had a CT of the abdomen and pelvis with no acute findings in the abdomen. Review of Systems REVIEW OF SYSTEMS: CARDIOPULMONARY: Chest pain, shortness of breath. Dyspnea with exertion. Weakness. Gastrointestinal: Pain with swallowing in the epigastric region. No nausea or vomiting. No hematemesis, coffee-ground emesis. No rectal bleeding, or melena. GENITOURINARY: No dysuria or hematuria. MUSCULOSKELETAL: Reports normal range of motion., Joint pain. SKIN: No rashes. No jaundice. ENDOCRINE: No chills, fevers. No excessive weight gain or loss. No polydipsia or polyuria. PSYCHIATRIC: Unremarkable. NEUROLOGY: No change in mental status. Denies dizziness, headache. ENT: Vision unremarkable. CONSTITUTIONAL: No recent weight loss. No fever, chills, night sweats. Past Medical History Past Medical History: CVA/TIA, Diabetes Mellitus, Dialysis, Eye Disorder, Hyperlipidemia, Hypertension, Renal Disease Additional Past Medical History / Comment(s): NIGHTLY CAPD. BLIND-DIABETIC RETINOPATHY. HX CVA AGE 39-SLIGHT LT SIDED WEAKNESS History of Any Multi-Drug Resistant Organisms: None Reported Past Surgical History: Cholecystectomy, Joint Replacement, Tubal Ligation Additional Past Surgical History / Comment(s): ELISAENTristin BX. PARTIAL KNEE REPLACEMENT (SIDE UNKNOWN). COLONOSCOPY. BILAT CATARACTS REMOVED WITH LENS IMPLANTS. PERITONEAL DIALYSIS CATH. MULTIPLE EYE SURGERIES Past Anesthesia/Blood Transfusion Reactions: No Reported Reaction Smoking Status: Never smoker - Past Family History Father Family Medical History: Cancer Additional Family Medical History / Comment(s): Laryngeal cancer. Mother Family Medical History: Cancer Additional Family Medical History / Comment(s): Ovarian cancer Medications and Allergies Home Medications Medication Instructions Recorded Confirmed Type Atorvastatin [Lipitor] 20 mg PO DAILY 01/10/22 02/21/22 History Atropine Sulfate [Atropine Sulfate 1 applic RIGHT EYE DAILY PRN 01/10/22 02/21/22 History 1% Ophth Oint] Brimonidine Tartrate/Timolol 1 drop RIGHT EYE BID 01/10/22 02/21/22 History [Combigan 0.2%-0.5% Eye Drops] Insulin Glargine,Hum.rec.anlog 40 units SQ HS 01/10/22 02/21/22 History [Lantus Solostar Pen] Omeprazole 40 mg PO DAILY 01/10/22 02/21/22 History PARoxetine [Paxil] 20 mg PO BID 01/10/22 02/21/22 History Prednisolone Acetate/Pf 1 drop RIGHT EYE TID 01/10/22 02/21/22 History [Prednisolone Acet 1% Eye Drop] amLODIPine [Norvasc] 10 mg PO DAILY 01/10/22 02/21/22 History calcitrioL [Calcitriol] 0.25 mcg PO MOWEFR 01/10/22 02/21/22 History carvediloL [Coreg] 25 mg PO BID 01/10/22 02/21/22 History hydrALAZINE HCL [Apresoline] 50 mg PO TID 01/10/22 02/21/22 History lisinopriL [Zestril] 10 mg PO DAILY 01/10/22 02/21/22 History Acetaminophen [Tylenol] 325 mg PO Q4H PRN 02/21/22 02/21/22 History Docusate Oral Soln [Colace Oral 100 mg PO DAILY PRN 02/21/22 02/21/22 History Soln] Docusate [Colace] 100 mg PO DAILY PRN 02/21/22 02/21/22 History Furosemide [Lasix] 80 mg PO BID 02/21/22 02/21/22 History Insulin Aspart [NovoLOG Flexpen] See Protocol SQ AC-TID 02/21/22 02/21/22 History L.acidoph,Paracasei, B.lactis 1 cap PO Q2D 02/21/22 02/21/22 History [Probiotic] Lanthanum Carbonate [Lanthanum 1,000 mg PO AC-TID 02/21/22 02/21/22 History Carbonate Chew] Lanthanum Carbonate [Lanthanum 500 mg PO DIRECTED PRN 02/21/22 02/21/22 History Carbonate Chew] predniSONE See Taper PO DIRECTED 02/21/22 02/21/22 History Allergies Allergy/AdvReac Type Severity Reaction Status Date / Time No Known Allergies Allergy Verified 02/21/22 08:50 Physical Exam Vitals: Vital Signs Temp Pulse Pulse Resp BP BP Pulse Ox 02/21/22 12:21 97.7 F 69 14 129/76 95 02/21/22 10:22 97.6 F 68 16 144/78 96 02/21/22 09:55 68 18 154/90 95 02/21/22 07:10 71 18 141/76 93 L 02/21/22 05:17 98.4 F 70 16 152/76 96 02/21/22 03:06 98.2 F 69 18 118/93 100 02/21/22 02:47 98 F 71 18 131/74 98 Intake and Output 02/20/22 02/21/22 02/21/22 22:59 06:59 14:59 Other: Voiding Method CAPD Weight 86.183 kg 86.183 kg General appearance: The patient is alert, oriented, appears in no acute distress. HET: Head is normocephalic and atraumatic. Conjunctiva pink. Sclera anicteric. Neck: Supple without lymphadenopathy. Trachea midline. Heart: S1 S2. Regular rate and rhythm. Lungs: Clear to auscultation. Chest wall: Patient with reproducible chest pain and tenderness. Abdomen: Soft, nontender, nondistended with bowel sounds. No guarding or rigidity. Skin: No rashes. No jaundice. Extremities: Normal skin color and turgor. No pedal edema. Neurological: No focal deficits. Alert and oriented x3. Results CBC & Chem 7: 02/21/22 05:00 02/21/22 05:00 Labs: Abnormal Lab Results - Last 24 Hours (Table) 02/21/22 02/21/22 02/21/22 Range/Units 05:00 05:00 09:24 WBC 11.7 H (3.8-10.6) k/uL RBC 3.58 L (3.80-5.40) m/uL Hgb 11.2 L (11.4-16.0) gm/dL Neutrophils # 10.3 H (1.3-7.7) k/uL Lymphocytes # 0.9 L (1.0-4.8) k/uL Chloride 97 L (98-107) mmol/L BUN 109 H* (7-17) mg/dL Creatinine 11.92 H* (0.52-1.04) mg/dL Glucose 150 H (74-99) mg/dL POC Glucose (mg/dL) 159 H (70-110) mg/dL 02/21/22 Range/Units 12:17 WBC (3.8-10.6) k/uL RBC (3.80-5.40) m/uL Hgb (11.4-16.0) gm/dL Neutrophils # (1.3-7.7) k/uL Lymphocytes # (1.0-4.8) k/uL Chloride (98-107) mmol/L BUN (7-17) mg/dL Creatinine (0.52-1.04) mg/dL Glucose (74-99) mg/dL POC Glucose (mg/dL) 184 H (70-110) mg/dL Comments: chest CT abdomen and pelvis without contrast: No acute abnormality in the abdomen and pelvis. Normal appendix. No evidence of pancreatitis. Extensive arthrosclerotic vascular disease in the abdomen/pelvis. Minimal scarring or subsegmental atelectasis at the left lung base. No suspicious pulmonary mass. CT scan - abdomen: report reviewed Assessment and Plan (1) Epigastric pain Narrative/Plan: 56-year-old female with a history of coronary artery disease presented to the e mergency department with chest pain radiating into her neck. Patient also states she's been having intermittent pain with swallowing mostly in the epigastric region. He denies any previous history of dysphagia, no history of peptic ulcer disease. She denies any previous history of EGD but has had a recent colonoscopy within the last 4 years duration [facility] but she states was normal. Patient with atypical chest pain, possible GERD. Will treat with PPI and allow cardiology further workup. Current Visit: Yes Status: Acute Code(s): R10.13 - EPIGASTRIC PAIN SNOMED Code(s): 11930268 (2) Chest pain Narrative/Plan: cardiology following, may be musculoskeletal, costochondritis this patient has recently been following with chiropractor and pain is reproducible with palpation along chest wall Current Visit: Yes Status: Acute Code(s): R07.9 - CHEST PAIN, UNSPECIFIED SNOMED Code(s): 13785373 Plan: 1. Continue symptomatic and supportive care 2. Protonix 40 mg twice a day 3. Diet as tolerated 4. Cardiology on consult, recommend further workup and appreciate their recommendations. 5. No plans an endoscopic evaluation at this time.
--- NOTE | 2022-02-21 17:19 | P.HPIM ---
History of Present Illness H&P Date: 02/21/22 Chief Complaint: Chest pain This is a pleasant 56-year-old patient who follows with Dr. Mel Buckley. Chronic stable medical conditions include stroke with some mild left-sided weakness with the patient also balance, end-stage kidney disease on antiretroviral dialysis for last 5 months, poor vision with some residual vision in the left eye, hypertension, hyperlipidemia,. For about 5 days patient has been noted exiting some anterior chest wall pain. Sometimes going to the neck. She thought this could be a cervical polyp noted Monse and see the chiropractor. He did manipulation/cracked and neck with no change. She noticed that patient is also been short of breath. Feels easily tired. No fever no chills. The pain is sometimes worse with a deep breath. No swelling of the lower extremity. She also describes a burning sensation from epigastric area up to the throat. Computed tomography scan chest abdomen pelvis without contrast in the ER was unremarkable. Review of systems: GEN.: Tired decreased appetite EYES: Poor vision HEENT: None NECK: None RESPIRATORY: As above CARDIOVASCULAR: As above GASTROINTESTINAL: None GENITOURINARY: None MUSCULOSKELETAL: None LYMPHATICS: None HEMATOLOGICAL: None PSYCHIATRY: None NEUROLOGICAL: None Past medical history to include: Stroke with left-sided residual mild weakness, diabetes, end-stage kidney disease on peritoneal dialysis at night, poor vision from diabetic retinopathy, hypertension, hyperlipidemia, Social history: Lives with her caregiver Christine Davis, no smoking or alcohol. Physical examination: VITAL SIGNS: 98, 71, 18, 1:30 was 74, 98% room air GENERAL: BMI 31.6, reclining in bed awake not in distress. EYES: Pupils equal. Conjunctiva normal. HEENT: External appearance of nose and ears normal, oral cavity grossly normal. NECK: JVD not raised; masses not palpable. HEART: First and second heart sounds are normal; no edema. LUNGS: Respiratory rate normal; clear to auscultation. ABDOMEN: Soft, nontender, liver spleen not palpable, no masses palpable. PD catheter PSYCH: Alert and oriented x3; mood and affect normal. MUSCULOSKELETAL:No Clubbing/cyanosis;muscles-grossly intact NEUROLOGICAL: Poor eyesight; no facial asymmetry, power and sensation grossly intact. LYMPHATICS: No lymph nodes palpable in the axilla and neck INVESTIGATIONS, reviewed in the clinical context: WBC 11.7 hemoglobin 11.2 platelets 326 sodium 140 potassium 4.8 BUN 109 creatinine 11.9 to Troponin I 0.030, 0.022, 0.023 COVID 19/influenza type A/type B: Not detected EKG tracing personally reviewed by me-normal sinus rhythm. T-wave changes. CT chest abdomen pelvis without contrast: Unremarkable Assessment and plan: -Patient presented 5 day history of anterior chest wall pain. Some pleuritic n ature. Short of breath with exertion. Also some epigastric discomfort. We will rule out PE. CT chest with contrast. Also consider pericarditis uremic. 2-D echocardiogram. -End-stage kidney disease on peritoneal dialysis Consult nephrology -Severe diabetic retinopathy. Patient has some residual vision in the left eye -Diabetes mellitus type 2, chronically on insulin Insulin. Follow Accu-Cheks -GERD PPI -Anxiety depression Paxil Hyperlipidemia Lipitor -Essential hypertension Norvasc, Zestril, hydralazine Computed tomography scan chest with contrast rule out PE. 2-D echocardiogram. Consultation to nephrology, cardiology, GI. Telemetry. Levemir 30 units. Follow Accu-Cheks. Care was discussed with the patient. Questions answered. Past Medical History Past Medical History: CVA/TIA, Diabetes Mellitus, Dialysis, Eye Disorder, Hyperlipidemia, Hypertension, Renal Disease Additional Past Medical History / Comment(s): NIGHTLY CAPD. BLIND-DIABETIC RETINOPATHY. HX CVA AGE 39-SLIGHT LT SIDED WEAKNESS History of Any Multi-Drug Resistant Organisms: None Reported Past Surgical History: Cholecystectomy, Joint Replacement, Tubal Ligation Additional Past Surgical History / Comment(s): ELISAENTristin BX. PARTIAL KNEE REPLACEMENT (SIDE UNKNOWN). COLONOSCOPY. BILAT CATARACTS REMOVED WITH LENS IMPLANTS. PERITONEAL DIALYSIS CATH. MULTIPLE EYE SURGERIES Past Anesthesia/Blood Transfusion Reactions: No Reported Reaction Smoking Status: Never smoker - Past Family History Father Family Medical History: Cancer Additional Family Medical History / Comment(s): Laryngeal cancer. Mother Family Medical History: Cancer Additional Family Medical History / Comment(s): Ovarian cancer Medications and Allergies Home Medications Medication Instructions Recorded Confirmed Type Atorvastatin [Lipitor] 20 mg PO DAILY 01/10/22 02/21/22 History Atropine Sulfate [Atropine Sulfate 1 applic RIGHT EYE DAILY PRN 01/10/22 02/21/22 History 1% Ophth Oint] Brimonidine Tartrate/Timolol 1 drop RIGHT EYE BID 01/10/22 02/21/22 History [Combigan 0.2%-0.5% Eye Drops] Insulin Glargine,Hum.rec.anlog 40 units SQ HS 01/10/22 02/21/22 History [Lantus Solostar Pen] Omeprazole 40 mg PO DAILY 01/10/22 02/21/22 History PARoxetine [Paxil] 20 mg PO BID 01/10/22 02/21/22 History Prednisolone Acetate/Pf 1 drop RIGHT EYE TID 01/10/22 02/21/22 History [Prednisolone Acet 1% Eye Drop] amLODIPine [Norvasc] 10 mg PO DAILY 01/10/22 02/21/22 History calcitrioL [Calcitriol] 0.25 mcg PO MOWEFR 01/10/22 02/21/22 History carvediloL [Coreg] 25 mg PO BID 01/10/22 02/21/22 History hydrALAZINE HCL [Apresoline] 50 mg PO TID 01/10/22 02/21/22 History lisinopriL [Zestril] 10 mg PO DAILY 01/10/22 02/21/22 History Acetaminophen [Tylenol] 325 mg PO Q4H PRN 02/21/22 02/21/22 History Docusate Oral Soln [Colace Oral 100 mg PO DAILY PRN 02/21/22 02/21/22 History Soln] Docusate [Colace] 100 mg PO DAILY PRN 02/21/22 02/21/22 History Furosemide [Lasix] 80 mg PO BID 02/21/22 02/21/22 History Insulin Aspart [NovoLOG Flexpen] See Protocol SQ AC-TID 02/21/22 02/21/22 History L.acidoph,Paracasei, B.lactis 1 cap PO Q2D 02/21/22 02/21/22 History [Probiotic] Lanthanum Carbonate [Lanthanum 1,000 mg PO AC-TID 02/21/22 02/21/22 History Carbonate Chew] Lanthanum Carbonate [Lanthanum 500 mg PO DIRECTED PRN 02/21/22 02/21/22 History Carbonate Chew] predniSONE See Taper PO DIRECTED 02/21/22 02/21/22 History Allergies Allergy/AdvReac Type Severity Reaction Status Date / Time No Known Allergies Allergy Verified 02/21/22 08:50 Physical Exam Vitals: Vital Signs Temp Pulse Pulse Resp BP BP BP 02/21/22 15:00 97.8 F 62 16 120/73 02/21/22 13:00 67 14 115/75 02/21/22 12:31 68 14 131/79 02/21/22 12:21 97.7 F 69 14 129/76 02/21/22 10:22 97.6 F 68 16 144/78 02/21/22 09:55 68 18 154/90 02/21/22 07:10 71 18 141/76 02/21/22 05:17 98.4 F 70 16 152/76 02/21/22 03:06 98.2 F 69 18 118/93 02/21/22 02:47 98 F 71 18 131/74 Pulse Ox 02/21/22 15:00 93 L 02/21/22 13:00 94 L 02/21/22 12:31 95 02/21/22 12:21 95 02/21/22 10:22 96 02/21/22 09:55 95 02/21/22 07:10 93 L 02/21/22 05:17 96 02/21/22 03:06 100 02/21/22 02:47 98 Intake and Output 02/21/22 02/21/22 02/21/22 06:59 14:59 22:59 Intake Total 118 Balance 118 Intake: Oral 118 Other: Voiding Method CAPD # Voids 2 Weight 86.183 kg 86.183 kg Results CBC & Chem 7: 02/21/22 05:00 02/21/22 05:00 Labs: Abnormal Lab Results - Last 24 Hours (Table) 02/21/22 02/21/22 02/21/22 Range/Units 05:00 05:00 09:24 WBC 11.7 H (3.8-10.6) k/uL RBC 3.58 L (3.80-5.40) m/uL Hgb 11.2 L (11.4-16.0) gm/dL Neutrophils # 10.3 H (1.3-7.7) k/uL Lymphocytes # 0.9 L (1.0-4.8) k/uL Chloride 97 L (98-107) mmol/L BUN 109 H* (7-17) mg/dL Creatinine 11.92 H* (0.52-1.04) mg/dL Glucose 150 H (74-99) mg/dL POC Glucose (mg/dL) 159 H (70-110) mg/dL 02/21/22 02/21/22 Range/Units 12:17 14:18 WBC (3.8-10.6) k/uL RBC (3.80-5.40) m/uL Hgb (11.4-16.0) gm/dL Neutrophils # (1.3-7.7) k/uL Lymphocytes # (1.0-4.8) k/uL Chloride (98-107) mmol/L BUN (7-17) mg/dL Creatinine (0.52-1.04) mg/dL Glucose (74-99) mg/dL POC Glucose (mg/dL) 184 H 251 H (70-110) mg/dL Thrombosis Risk Factor Assmnt - Choose All That Apply Any of the Below Risk Factors Present?: Yes Each Factor Represents 1 point: Age 41-60 years, Obesity (BMI >25) Other Risk Factors: No Other congenital or acquired thrombophilia - If yes, enter type in comment: No Thrombosis Risk Factor Assessment Total Risk Factor Score: 2 Thrombosis Risk Factor Assessment Level: Low Risk
[2022-02-21 18:27] LABS: Glucose,Whole Blood 146 mg/dL (70-110)
[2022-02-21] MEDS: DIALYSIS (PERIT 1.5%) 2,500 ML 37.5 G/2,500 ML BAG INTRAPERIT SCH (18:30)
[2022-02-21] MEDS: ONDANSETRON 4 MG/2 ML VIAL IVP PRN (18:50)
--- NOTE | 2022-02-21 18:54 | XR ---
EXAMINATION TYPE: XR chest 2V DATE OF EXAM: 02/21/2022 6:07 PM COMPARISON: CT same day TECHNIQUE: XR chest 2V Frontal and lateral views of the chest. CLINICAL INDICATION:Female, 56 years old with history of Short of breath; FINDINGS: Lungs/Pleura: There is no evidence of pleural effusion, focal consolidation, or pneumothorax. Pulmonary vascularity: Unremarkable. Heart/mediastinum: Cardiomediastinal silhouette is unremarkable. Musculoskeletal: No acute osseous pathology. IMPRESSION: No acute cardiopulmonary disease/process.
--- NOTE | 2022-02-21 18:54 | CT ---
EXAMINATION TYPE: CT angio chest CT DLP: 486.30 mGycm, Automated exposure control for dose reduction was used. DATE OF EXAM: 02/21/2022 6:03 PM COMPARISON: Same day CT chest abdomen pelvis. chest radiograph same day CLINICAL INDICATION:Female, 56 years old with history of Rule out PE; Rule out PE TECHNIQUE/CONTRAST: CTA scan of the thorax is performed with IV Contrast, patient injected with 100cc mL of Isovue 370, p ulmonary embolism protocol. MIP images are created and reviewed. FINDINGS: Pulmonary Artery: There is no evidence for a filling defect within the pulmonary vasculature to sugge st acute pulmonary embolism. The pulmonary artery is of normal size. Lungs/Pleura: No evidence of focal consolidation, pleural effusion or pneumothorax. Streaky atelectas is and/or scarring in the lung bases. Airway: Large airways are patent. Heart: Heart is mildly enlarged for size. There is coronary artery atherosclerosis. Vasculature: No evidence of aortic aneurysm. Mediastinum: No gross evidence of adenopathy. Layering debris throughout the esophagus. Musculoskeletal: No acute osseous abnormalities Soft Tissues: Unremarkable. Lower neck: No significant findings. Upper Abdomen: Small amount of fluid within the abdomen and pelvis. The gallbladder surgically absent . IMPRESSION: 1. No evidence of pulmonary embolism. 2. Layering debris throughout the esophagus correlate for reflux and/or retained ingested contents. 3. Small abdominal ascites.
[2022-02-21 20:47] LABS: Glucose,Whole Blood 144 mg/dL (70-110)
[2022-02-21] MEDS: INSULIN DETEMIR (LEVEMIR) 100 UNIT/ML SYR SQ SCH (21:33)
[2022-02-22] MEDS: DIALYSIS (PERIT 2.5%) 2,500 ML 62.5 G/2,500 ML BAG INTRAPERIT SCH (00:41)
[2022-02-22 01:32] LABS: Appearance,BF Clear
[2022-02-22] MEDS: ONDANSETRON 4 MG/2 ML VIAL IVP PRN ×2 (03:51→12:02)
[2022-02-22] MEDS: ACETAMINOPHEN TAB 325 MG TAB PO PRN (03:51)
[2022-02-22 06:06] LABS: Glucose,Whole Blood 136 mg/dL (70-110)
[2022-02-22] MEDS: DIALYSIS (PERIT 1.5%) 2,500 ML 37.5 G/2,500 ML BAG INTRAPERIT SCH ×3 (06:54→17:32)
--- NOTE | 2022-02-22 07:21 | P.CRDCN ---
"History of Present Illness History of present illness: HISTORY OF PRESENTING ILLNESS This is a pleasant 56-year-old female past medical history significant for end- stage renal disease on peritoneal dialysis, coronary artery disease with moderate severe stenosis involving the ostial portion, mild to moderate disease involving the circumflex and LAD recent cath 12/2021, type 2 diabetes, hypertension, dyslipidemia, diabetic retinopathy, GERD . She follows in the office with Dr. Wiggins. We have been asked to see in consultation for chest pain. Patient presents to the emergency department with complaints of chest pain that radiated across her chest. Also with neck pain in the back of her neck. The pain comes and goes. It is not always exertional. She had associated nausea and episode of vomiting. She also endorses generalized weakness and tiredness. Her chest pain is aggravated with palpation to the chest. She denies any shortness of breath, lightheadedness, dizziness, syncope or near syncope. She denies any tobacco or alcohol use. DIAGNOSTICS * EKG reveals sinus rhythm, heart rate 67, nonspecific T abnormalities inferiorly and laterally. T wave inversions are new from EKG in the office. * Last Cardiac Catheterization 01/18/2022 revealed heavily calcified coronary arteries, severe stenosis involving the ostial portion of the posterior left ventricle branch, mild to moderate disease involving the circumflex coronary artery and LAD shows 3040 percent stenosis in the midportion and involving diagonal branch. * Telemetry tracings indicate sinus rhythm * Laboratory reviewed, troponin negative 3, WBC 11.7, hemoglobin 11.2, p latelets 326, sodium 140, potassium 4.8, BUN 109 serum creatinine 1.9 * Echocardiogram in the office 03/2021 revealed EF 55%, small hypokinetic areas of inferior inferoseptal vasquez at the base. Moderate concentric LVH, mild to moderate mitral regurgitation REVIEW OF SYSTEMS At the time of my exam: CONSTITUTIONAL: Denies fever or chills. CARDIOVASCULAR: +chest pain, Denies shortness of breath, orthopnea, PND or palpitations. RESPIRATORY: Denies cough. GASTROINTESTINAL: Denies abdominal pain, diarrhea, constipation, nausea or vomiting. MUSCULOSKELETAL:+|neck pain NEUROLOGIC: Denies numbness, tingling, headache or weakness. ENDOCRINE: Denies fatigue, weight change, polydipsia or polyurina. GENITOURINARY: Denies burning, hematuria or urgency with micturation. HEMATOLOGIC: Denies bleeding. PHYSICAL EXAMINATION Vitals reviewed CONSTITUTIONAL: No apparent distress. HEENT: Head is normocephalic. Pupils are equal, round. Sclerae anicteric. Mucous membranes of the mouth are moist. No JVD. No carotid bruit. CHEST EXAMINATION: Lungs are clear to auscultation. There is chest wall tender ness is noted on palpation to the anterior chest HEART EXAMINATION: Regular rate and rhythm. S1, S2 heard. Systolic murmur at apex. No gallops or rub. ABDOMEN: Soft, nontender. Positive bowel sounds. EXTREMITIES: 2+ peripheral pulses, no lower extremity edema and no calf tenderness. SKIN: warm, dry NEUROLOGIC EXAMINATION: Patient is awake, alert and oriented x3. ASSESSMENT Chest pain, acute coronary syndrome has been ruled out. Possibly musculoskeletal with pain reproducible on exam Neck pain, with movement Nausea and vomiting End-stage renal disease on peritoneal dialysis, coronary artery disease with moderate severe stenosis involving the ostial portion, mild to moderate disease involving the circumflex and LAD recent cath 12/2021 Type 2 diabetes Hypertension Dyslipidemia Diabetic retinopathy GERD PLAN An acute coronary event has been ruled out with no EKG evidence of ischemia and negative cardiac enzymes. Recommend continuing optimal medical therapy Start aspirin Obtain 2D echocardiogram and doppler study to assess cardiac function. Further recommendations based on clinical course Thank you kindly for this consultation. Nurse practitioner note has been reviewed by physician. Signing provider agrees with the documented findings, assessment, and plan of care. Past Medical History Past Medical History: CVA/TIA, Diabetes Mellitus, Dialysis, Eye Disorder, Hyperlipidemia, Hypertension, Renal Disease Additional Past Medical History / Comment(s): NIGHTLY CAPD. BLIND-DIABETIC RETINOPATHY. HX CVA AGE 39-SLIGHT LT SIDED WEAKNESS History of Any Multi-Drug Resistant Organisms: None Reported Past Surgical History: Cholecystectomy, Joint Replacement, Tubal Ligation Additional Past Surgical History / Comment(s): KIDENY BX. PARTIAL KNEE REPLACEMENT (SIDE UNKNOWN). COLONOSCOPY. BILAT CATARACTS REMOVED WITH LENS IMPLANTS. PERITONEAL DIALYSIS CATH. MULTIPLE EYE SURGERIES Past Anesthesia/Blood Transfusion Reactions: No Reported Reaction Smoking Status: Never smoker - Past Family History Father Family Medical History: Cancer Additional Family Medical History / Comment(s): Laryngeal cancer. Mother Family Medical History: Cancer Additional Family Medical History / Comment(s): Ovarian cancer Medications and Allergies Home Medications Medication Instructions Recorded Confirmed Type Atorvastatin [Lipitor] 20 mg PO DAILY 01/10/22 02/21/22 History Atropine Sulfate [Atropine Sulfate 1 applic RIGHT EYE DAILY PRN 01/10/22 02/21/22 History 1% Ophth Oint] Brimonidine Tartrate/Timolol 1 drop RIGHT EYE BID 01/10/22 02/21/22 History [Combigan 0.2%-0.5% Eye Drops] Insulin Glargine,Hum.rec.anlog 40 units SQ HS 01/10/22 02/21/22 History [Lantus Solostar Pen] Omeprazole 40 mg PO DAILY 01/10/22 02/21/22 History PARoxetine [Paxil] 20 mg PO BID 01/10/22 02/21/22 History Prednisolone Acetate/Pf 1 drop RIGHT EYE TID 01/10/22 02/21/22 History [Prednisolone Acet 1% Eye Drop] amLODIPine [Norvasc] 10 mg PO DAILY 01/10/22 02/21/22 History calcitrioL [Calcitriol] 0.25 mcg PO MOWEFR 01/10/22 02/21/22 History carvediloL [Coreg] 25 mg PO BID 01/10/22 02/21/22 History hydrALAZINE HCL [Apresoline] 50 mg PO TID 01/10/22 02/21/22 History lisinopriL [Zestril] 10 mg PO DAILY 01/10/22 02/21/22 History Acetaminophen [Tylenol] 325 mg PO Q4H PRN 02/21/22 02/21/22 History Docusate Oral Soln [Colace Oral 100 mg PO DAILY PRN 02/21/22 02/21/22 History Soln] Docusate [Colace] 100 mg PO DAILY PRN 02/21/22 02/21/22 History Furosemide [Lasix] 80 mg PO BID 02/21/22 02/21/22 History Insulin Aspart [NovoLOG Flexpen] See Protocol SQ AC-TID 02/21/22 02/21/22 History L.acidoph,Paracasei, B.lactis 1 cap PO Q2D 02/21/22 02/21/22 History [Probiotic] Lanthanum Carbonate [Lanthanum 1,000 mg PO AC-TID 02/21/22 02/21/22 History Carbonate Chew] Lanthanum Carbonate [Lanthanum 500 mg PO DIRECTED PRN 02/21/22 02/21/22 History Carbonate Chew] predniSONE See Taper PO DIRECTED 02/21/22 02/21/22 History Allergies Allergy/AdvReac Type Severity Reaction Status Date / Time No Known Allergies Allergy Verified 02/21/22 08:50 Physical Exam Vitals: Vital Signs Temp Pulse Resp BP Pulse Ox 02/21/22 09:55 68 18 154/90 95 02/21/22 07:10 71 18 141/76 93 L 02/21/22 05:17 98.4 F 70 16 152/76 96 02/21/22 03:06 98.2 F 69 18 118/93 100 02/21/22 02:47 98 F 71 18 131/74 98 Intake and Output 02/20/22 02/21/22 02/21/22 22:59 06:59 14:59 Other: Weight 86.183 kg 86.183 kg Results 02/21/22 05:00 02/21/22 05:00 Cardiac Enzymes 02/21/22 02/21/22 02/21/22 Range/Units 05:00 05:00 08:40 AST 18 (14-36) U/L Troponin I 0.030 0.022 (0.000-0.034) ng/mL Coagulation 02/21/22 Range/Units 05:00 PT 9.6 (9.0-12.0) sec APTT 25.1 (22.0-30.0) sec CBC 02/21/22 Range/Units 05:00 WBC 11.7 H (3.8-10.6) k/uL RBC 3.58 L (3.80-5.40) m/uL Hgb 11.2 L (11.4-16.0) gm/dL Hct 35.4 (34.0-46.0) % Plt Count 326 (150-450) k/uL Comprehensive Metabolic Panel 02/21/22 Range/Units 05:00 Sodium 140 (137-145) mmol/L Potassium 4.8 (3.5-5.1) mmol/L Chloride 97 L (98-107) mmol/L Carbon Dioxide 22 (22-30) mmol/L BUN 109 H* (7-17) mg/dL Creatinine 11.92 H* (0.52-1.04) mg/dL Glucose 150 H (74-99) mg/dL Calcium 9.3 (8.4-10.2) mg/dL AST 18 (14-36) U/L ALT 22 (4-34) U/L Alkaline Phosphatase 68 (38-126) U/L Total Protein 6.9 (6.3-8.2) g/dL Albumin 4.3 (3.5-5.0) g/dL Current Medications Generic Name Dose Route Start Last Admin Trade Name Freq PRN Reason Stop Dose Admin Acetaminophen 325 mg 02/21/22 10:01 Acetaminophen Tab 325 Mg Tab PO Q4H PRN Mild Pain Amlodipine Besylate 10 mg 02/21/22 10:15 Amlodipine 10 Mg Tab PO DAILY [facility] Atorvastatin Calcium 20 mg 02/21/22 10:15 Atorvastatin 20 Mg Tab PO DAILY [facility] Atropine Sulfate 1 drops 02/21/22 10:01 Atropine Ophth Soln 1% 5ml Btl RIGHT EYE DAILY PRN eye irritation Brimonidine Tartrate 1 drops 02/21/22 10:15 Brimonidine Tartrate 0.2% Drops 5 Ml Btl RIGHT EYE BID [facility] Calcitriol 0.25 mcg 02/22/22 09:00 Calcitriol 0.25 Mcg Cap PO MOWEFR [facility] Carvedilol 25 mg 02/21/22 10:15 Carvedilol 12.5 Mg Tab PO AC-BID [facility] Sodium Chloride 1,000 mls @ 75 mls/hr 02/21/22 08:15 02/21/22 09:20 Saline 0.9% IV 75 mls/hr .[id number] DIEUDONNE Administration Insulin Detemir 30 unit 02/21/22 21:00 Insulin Detemir (Levemir) 100 Unit/Ml Syr SQ HS DIEUDONNE Naloxone HCl 0.2 mg 02/21/22 08:07 Naloxone 0.4 Mg/Ml 1 Ml Vial IV Q2M PRN Opioid Reversal Pantoprazole Sodium 40 mg 02/21/22 10:15 Pantoprazole 40 Mg Tablet PO DAILY [facility] Paroxetine HCl 20 mg 02/21/22 10:15 Paroxetine 20 Mg Tab PO BID [facility] Prednisolone Acetate 1 drops 02/21/22 10:15 Prednisolone Acetate 1% Ophth Drops 5 Ml Btl RIGHT EYE TID DIEUDONNE Intake and Output 02/20/22 02/21/22 02/21/22 22:59 06:59 14:59 Other: Weight 86.183 kg 86.183 kg Patient Weight 02/22/22 06:59 Weight 86.183 kg 02/21/22 05:00 02/21/22 05:00"
[2022-02-22] MEDS ORDERED: TRIMETHOBENZAMIDE 100 MG/ML 2 ML VIAL IM STA (08:02)
[2022-02-22 08:41] LABS: Basophils # (A) 0.01 X 10*3/uL (0.00-0.10); Basophils % (A) 0.1 %; Eosinophils # (A) 0.05 X 10*3/uL (0.04-0.35); Eosinophils % (A) 0.5 %; HCT 32.8 % (37.2-46.3); HGB 10.3 g/dL (12.0-15.0); Immature Grans, Automated 0.2 %; Lymphocytes # (A) 2.17 X 10*3/uL (0.90-5.00); Lymphocytes % (A) 21.3 %; MCH 31.2 pg (27.0-32.0); MCHC 31.4 g/dL (32.0-37.0); MCV 99.4 fL (80.0-97.0); Mean Platelet Volume 12.3 fL (9.5-12.2); Monocytes # (A) 0.89 X 10*3/uL (0.20-1.00); Monocytes % (A) 8.7 %; NRBC Per 100 WBC 0 /100 WBCS (0.0-0.0); Neutrophils # (A) 7.05 X 10*3/uL (1.80-7.70); Neutrophils % (A) 69.2 %; Platelet Count 340 X 10*3/uL (140-440); RDW 14.6 % (11.5-14.5); WBC 10.19 X 10*3/uL (4.50-10.00)
[2022-02-22] MEDS: INSULIN ASPART (NovoLOG) 100 UNIT/ML VIAL SQ SCH ×4 (08:51→21:11)
[2022-02-22] MEDS: carvediloL 12.5 MG TAB PO SCH ×2 (09:42→17:29)
[2022-02-22] MEDS: ATORVASTATIN 20 MG TAB PO SCH (09:42)
[2022-02-22] MEDS: CALCIUM CARBONATE LIQUID 500 MG/5 ML CUP PO SCH ×3 (09:42→17:28)
[2022-02-22] MEDS: PANTOPRAZOLE 40 MG/10 ML VIAL IVP SCH ×2 (09:42→21:15)
[2022-02-22] MEDS: PARoxetine 20 MG TAB PO SCH ×2 (09:43→21:16)
[2022-02-22] MEDS: amLODIPine 10 MG TAB PO SCH (09:43)
[2022-02-22] MEDS: TIMOLOL 0.5% OPHTH DROPS 5 ML BTL RIGHT EYE SCH ×2 (09:44→21:16)
[2022-02-22] MEDS: prednisoLONE ACETATE 1% OPHTH DROPS 5 ML BTL RIGHT EYE SCH ×3 (09:44→21:16)
[2022-02-22] MEDS: BRIMONIDINE TARTRATE 0.2% DROPS 5 ML BTL RIGHT EYE SCH ×2 (09:44→21:16)
--- NOTE | 2022-02-22 11:15 | P.PN ---
Subjective Progress Note Date: 02/22/22 Principal diagnosis: Epigastric pain This is a pleasant 56-year-old female who presented to the emergency department with complaints of weakness, chest pain, and pain radiating into her neck. Patient states the pain has been going on for the last 2 days duration. She has a past medical history including end-stage renal disease on peritoneal dialysis, coronary artery disease, blindness. Patient states symptoms started since last Sunday, which she is having intermittent pain with swallowing. She states is in the epigastric region. She states otherwise her pain is in her chest and across her chest and will radiate up to her neck as well. She states she feels increasingly weak as well and short of breath. States that she recently was having neck and back pain and went to see a chiropractor. Last Sunday she saw the chiropractor again for another adjustment and states the pain has been worse since then. She is tender to touch along her chest wall. She also had a cardiac catheterization approximately 2 weeks ago which she states that there was some narrowing but she did not have to undergo cyst stenting. She denies any difficulty with food getting stuck when she is swallowing, no nausea or vomiting. No previous EGD in the past or history of peptic ulcer disease. States she had a colonoscopy within the last 4 years done at [facility] which was normal. She had a CT of the abdomen and pelvis with no acute findings in the abdomen. 02/22/2022: Patient was seen and examined today as follow-up for epigastric pain. She had a difficult night with abdominal pain/epigastric pain, nausea and vomiting. She's had several episodes of bile appearing emesis, nonbloody. WBC 10 hemoglobin 10 platelet count 340,000, CMP pending. Objective - Vital Signs Vital signs: Vital Signs Temp 97.7 F 02/22/22 01:51 Pulse 66 02/22/22 06:55 Resp 18 02/22/22 06:55 BP 127/77 02/22/22 06:55 Pulse Ox 90 L 02/22/22 06:55 FiO2 Intake & Output 02/21/22 02/22/22 02/22/22 18:59 06:59 18:59 Intake Total 118 Balance 118 Weight 86.183 kg Intake: Oral 118 Other: Voiding Method CAPD CAPD # Voids 2 1 # Bowel Movements 5 - Exam General appearance: The patient is alert, oriented, appears in no acute distress. HET: Head is normocephalic and atraumatic. Conjunctiva pink. Sclera anicteric. Neck: Supple without lymphadenopathy. Abdomen: Soft, epigastric tenderness, nondistended with bowel sounds. No guarding or rigidity. Extremities: Normal skin color and turgor. No pedal edema Skin: No rashes, no jaundice Neurological: No focal deficits. Alert and oriented. - Labs CBC & Chem 7: 02/22/22 04:14 02/21/22 05:00 Labs: Abnormal Lab Results - Last 24 Hours (Table) 02/21/22 02/21/22 02/21/22 Range/Units 09:24 12:17 14:18 POC Glucose (mg/dL) 159 H 184 H 251 H (70-110) mg/dL 02/21/22 02/21/22 02/22/22 Range/Units 18:26 20:46 06:04 POC Glucose (mg/dL) 146 H 144 H 136 H (70-110) mg/dL Microbiology - Last 24 Hours (Table) 02/21/22 21:28 Body Fluid Culture - Preliminary Peritoneal Fluid Assessment and Plan (1) Epigastric pain Narrative/Plan: 56-year-old female with a history of coronary artery disease presented to the emergency department with chest pain radiating into her neck. Patient also states she's been having intermittent pain with swallowing mostly in the epigastric region. He denies any previous history of dysphagia, no history of peptic ulcer disease. She denies any previous history of EGD but has had a recent colonoscopy within the last 4 years duration at [facility] but she states was normal. Patient with atypical chest pain, possible GERD. Will treat with PPI and allow cardiology further workup. Cardiology has seen patient and cleared her of any acute coronary event and cleared her to undergo any further GI workup. Plan for patient to undergo EGD this afternoon. Tigan ordered 1, continue with Zofran and PPI twice a day. Current Visit: Yes Status: Acute Code(s): R10.13 - EPIGASTRIC PAIN SNOMED Code(s): 27577707 (2) Chest pain Current Visit: Yes Status: Acute Code(s): R07.9 - CHEST PAIN, UNSPECIFIED SNOMED Code(s): 74065269 Plan: 1. Continue symptomatic and supportive care 2. Protonix 40 mg twice a day 3. Nothing by mouth 4. Cardiology on consult, patient cleared of any acute coronary event, also cleared to undergo any GI workup. 5. Continue antiemetics, Tigan ordered 1 6. Continue with recommendations from nephrology 7. Plan for EGD this afternoon Thank you for this consultation, we'll continue to follow. Dr. Samara Wiggins I agree with the dictator's note, documented as a scribe by Cynthia Bautista.
[2022-02-22 11:17] LABS: Anion Gap 21.4 mmol/L (10.00-18.00); BUN/Creat Ratio 9.82 Ratio (12.00-20.00); Calcium 9.5 mg/dL (8.7-10.3); Carbon Dioxide 21.6 mmol/L (20.0-27.5); Potassium 4.1 mmol/L (3.5-5.5)
--- NOTE | 2022-02-22 11:17 | P.PN ---
Subjective This is a pleasant 56-year-old female past medical history significant for end- stage renal disease on peritoneal dialysis, coronary artery disease with moderate severe stenosis involving the ostial portion, mild to moderate disease involving the circumflex and LAD recent cath 12/2021, type 2 diabetes, hypertension, dyslipidemia, diabetic retinopathy, GERD . She follows in the office with Dr. Wiggins. We have been asked to see in consultation for chest pain. Patient presents to the emergency department with complaints of chest pain that radiated across her chest. Also with neck pain in the back of her neck. The pain comes and goes. It is not always exertional. She had associated nausea and episode of vomiting. She also endorses generalized weakness and tiredness. Her chest pain is aggravated with palpation to the chest. She denies any shortness of breath, lightheadedness, dizziness, syncope or near syncope. She denies any tobacco or alcohol use. DIAGNOSTICS * Last Cardiac Catheterization 01/18/2022 revealed heavily calcified coronary arteries, severe stenosis involving the ostial portion of the posterior left ventricle branch, mild to moderate disease involving the circumflex coronary artery and LAD shows 3040 percent stenosis in the midportion and involving diagonal branch. * Echocardiogram in the office 03/2021 revealed EF 55%, small hypokinetic areas of inferior inferoseptal vasquez at the base. Moderate concentric LVH, mild to moderate mitral regurgitation 02/22/2022 Patient seen and examined at bedside, continues to have significant nausea and vomiting. Intermittent chest discomfort. Continues to have some neck pain. No shortness of breath. Acute coronary syndrome has been ruled out. Repeat EKG sinus rhythm, no acute ischemic changes PHYSICAL EXAMINATION Vitals reviewed CONSTITUTIONAL: No apparent distress. HEENT: Head is normocephalic. No JVD. CHEST EXAMINATION: Lungs are clear to auscultation. There is chest wall tenderness is noted on palpation to the anterior chest HEART EXAMINATION: Regular rate and rhythm. S1, S2 heard. Systolic murmur at apex. No gallops or rub. ABDOMEN: Soft, nontender. Positive bowel sounds. EXTREMITIES: 2+ peripheral pulses, no lower extremity edema and no calf tendern ess. NEUROLOGIC EXAMINATION: Patient is awake, alert and oriented x3. ASSESSMENT Chest pain, acute coronary syndrome has been ruled out. Possibly musculoskeletal with pain reproducible on exam Neck pain, with movement Nausea and vomiting End-stage renal disease on peritoneal dialysis, coronary artery disease with moderate severe stenosis involving the ostial portion, mild to moderate disease involving the circumflex and LAD recent cath 12/2021 Type 2 diabetes Hypertension Dyslipidemia Diabetic retinopathy GERD PLAN An acute coronary event has been ruled out with no EKG evidence of ischemia and negative cardiac enzymes. Recommend continuing optimal medical therapy Obtain 2D echocardiogram and doppler study to assess cardiac function. GI following for nausea and vomiting, ok from a cardiology persective to undergo EGD/Colonoscopy if indicated. Further recommendations based on clinical course Nurse practitioner note has been reviewed by physician. Signing provider agrees with the documented findings, assessment, and plan of care. Objective - Vital Signs Vital signs: Vital Signs Temp 97.7 F 02/22/22 01:51 Pulse 66 02/22/22 06:55 Resp 18 02/22/22 06:55 BP 127/77 02/22/22 06:55 Pulse Ox 90 L 02/22/22 06:55 FiO2 Intake & Output 02/21/22 02/22/22 02/22/22 18:59 06:59 18:59 Intake Total 118 Balance 118 Weight 86.183 kg Intake: Oral 118 Other: Voiding Method CAPD CAPD # Voids 2 1 # Bowel Movements 5 - Labs CBC & Chem 7: 02/22/22 04:14 02/21/22 05:00 Labs: Abnormal Lab Results - Last 24 Hours (Table) 02/21/22 02/21/22 02/21/22 Range/Units 09:24 12:17 14:18 POC Glucose (mg/dL) 159 H 184 H 251 H (70-110) mg/dL 02/21/22 02/21/22 02/22/22 Range/Units 18:26 20:46 06:04 POC Glucose (mg/dL) 146 H 144 H 136 H (70-110) mg/dL Microbiology - Last 24 Hours (Table) 02/21/22 21:28 Body Fluid Culture - Preliminary Peritoneal Fluid
[2022-02-22] MEDS: SODIUM CHLORIDE 0.9% 1,000 ML IV SCH (12:16)
[2022-02-22 12:31] LABS: Glucose,Whole Blood 81 mg/dL (70-110)
[2022-02-22] MEDS ORDERED: ONDANSETRON 4 MG/2 ML VIAL ONE (12:55)
[2022-02-22] MEDS ORDERED: IV FLUID CONTINUATION 1,000 ML IV ONE (12:55)
[2022-02-22] MEDS ORDERED: PROPOFOL 10 MG/ML 20 ML VIAL IV ONE (12:55)
--- NOTE | 2022-02-22 13:15 | P.PCN ---
Date of Procedure: 02/22/22 Procedure(s) Performed: BRIEF HISTORY: Patient is a 56-year-old, pleasant, white female with history of end-stage liver disease on peritoneal dialysis admitted hospital with severe epigastric/chest pain and nausea vomiting for the last 1 week duration. She is currently on Protonix and antiemetics with no help. She is scheduled for an upper endoscopy to evaluate further. PROCEDURE PERFORMED: Esophagogastroduodenoscopy with biopsy. PREOPERATIVE DIAGNOSIS: Severe epigastric pain/nausea vomiting. IV sedation per anesthesia. PROCEDURE: After informed consent was obtained, the patient was brought into the endoscopy unit. IV sedation was administered by Anesthesia under continuous monitoring. Initially the Olympus GIF-140 video endoscope was inserted into the mouth. Esophagus intubated without any difficulty. It was gradually advanced into the stomach and duodenum and carefully examined. The bulb and the second part of the duodenum appeared normal. The scope at this time was withdrawn to the stomach, adequately insufflated with air, and upon careful examination, mucosa of the antrum, body had diffuse gastritis and biopsies were done from this area. Mucosa of the, cardia and the fundus appeared normal. As amount of retained liquid noted which was aspirated. No evidence of gastric outlet obstruction. The scope was then withdrawn into the esophagus. The GE junction was located at 39 cm from the incisors. Mucosa of the distal esophagus had erythema erosions suggestive of LA grade B reflux esophagitis. The rest of esophagus appeared normal, biopsies were done from the distal and the patient tolerated the procedure well. IMPRESSION: 1. Diffuse antral gastritis. 2. Erythema with erosions in the mid and distal esophagus consistent with LA grade B reflux esophagitis. 3. Retained liquid in the stomach but no evidence of gastric outlet obstruction RECOMMENDATIONS: The findings of this examination were discussed with the patient . She was advised to follow with the biopsy results. Continue with Protonix 40 mg twice daily as well as antiemetics as needed..
[2022-02-22] MEDS: ASPIRIN 81 MG PO SCH (17:28)
[2022-02-22 17:52] LABS: Glucose,Whole Blood 65 mg/dL (70-110)
--- NOTE | 2022-02-22 18:12 | P.PN ---
Progress Note - Text Progress Note Date: 02/22/22 Chief Complaint: Chest pain This is a pleasant 56-year-old patient who follows with Dr. Mel Buckley. Chronic stable medical conditions include stroke with some mild left-sided weakness with the patient also balance, end-stage kidney disease on antiretroviral dialysis fo r last 5 months, poor vision with some residual vision in the left eye, hypertension, hyperlipidemia,. For about 5 days patient has been noted exiting some anterior chest wall pain. Sometimes going to the neck. She thought this could be a cervical polyp noted Monse and see the chiropractor. He did manipulation/cracked and neck with no change. She noticed that patient is also been short of breath. Feels easily tired. No fever no chills. The pain is sometimes worse with a deep breath. No swelling of the lower extremity. She also describes a burning sensation from epigastric area up to the throat. Computed tomography scan chest abdomen pelvis without contrast in the ER was unremarkable. 02/22/2022: Seen by me earlier this morning. Patient friend and POA is present. Nothing by mouth for endoscopy. Computed tomography scan did show retention esophagitis. Later this afternoon patient did undergo EGD by Dr. Cooley. Found to have diffuse antral gastritis, and LA grade B reflux esophagitis. No evidence of gastric outlet obstruction. Active Medications Acetaminophen (Acetaminophen Tab 325 Mg Tab) 325 mg PO Q4H PRN PRN Reason: Mild Pain Last Admin: 02/22/22 03:51 Dose: 325 mg Amlodipine Besylate (Amlodipine 10 Mg Tab) 10 mg PO DAILY [facility] Last Admin: 02/22/22 09:43 Dose: 10 mg Aspirin (Aspirin 81 Mg) 81 mg PO DAILY [facility] Last Admin: 02/22/22 17:28 Dose: 81 mg Atorvastatin Calcium (Atorvastatin 20 Mg Tab) 20 mg PO DAILY [facility] Last Admin: 02/22/22 09:42 Dose: 20 mg Atropine Sulfate (Atropine Ophth Soln 1% 5ml Btl) 1 drops RIGHT EYE DAILY PRN PRN Reason: eye irritation Brimonidine Tartrate (Brimonidine Tartrate 0.2% Drops 5 Ml Btl) 1 drops RIGHT EYE BID [facility] Last Admin: 02/22/22 09:44 Dose: 1 drops Calcitriol (Calcitriol 0.25 Mcg Cap) 0.25 mcg PO MOWEFR [facility] Last Admin: 02/22/22 09:42 Dose: 0.25 mcg Calcium Carbonate/Glycine (Calcium Carbonate Liquid 500 Mg/5 Ml Cup) 500 mg PO TID-W/MEALS [facility] Last Admin: 02/22/22 17:28 Dose: 500 mg Carvedilol (Carvedilol 12.5 Mg Tab) 25 mg PO AC-BID [facility] Last Admin: 02/22/22 17:29 Dose: 25 mg Dextrose/Water (Dextrose 50% Syringe 50 Ml) 25 ml IVP PER PROTOCOL PRN; Pr otocol PRN Reason: Hypoglycemia Dextrose/Water (Dextrose 50% Syringe 50 Ml) 50 ml IVP PER PROTOCOL PRN; Protocol PRN Reason: Hypoglycemia Sodium Chloride (Saline 0.9%) 1,000 mls @ 75 mls/hr IV .[id number] [facility] Last Admin: 02/22/22 12:16 Dose: 75 mls/hr Peritoneal Dialysis Solution (Delflex With 1.5% Dextrose (2,500 Ml)) 37.5 g in 2,500 mls @ 0 mls/hr INTRAPERIT Q6HR [facility]; Protocol Last Admin: 02/22/22 17:32 Dose: 2,500 mls/hr Insulin Aspart (Insulin Aspart (Novolog) 100 Unit/Ml Vial) 0 unit SQ ACHS [facility]; Protocol Last Admin: 02/22/22 12:57 Dose: Not Given Insulin Detemir (Insulin Detemir (Levemir) 100 Unit/Ml Syr) 30 unit SQ HS [facility] Last Admin: 02/21/22 21:33 Dose: 30 unit Naloxone HCl (Naloxone 0.4 Mg/Ml 1 Ml Vial) 0.2 mg IV Q2M PRN PRN Reason: Opioid Reversal Ondansetron HCl (Ondansetron 4 Mg/2 Ml Vial) 4 mg IVP Q6HR PRN PRN Reason: Nausea And Vomiting Last Admin: 02/22/22 12:02 Dose: 4 mg Pantoprazole Sodium (Pantoprazole 40 Mg/10 Ml Vial) 40 mg IVP BID [facility] Last Admin: 02/22/22 09:42 Dose: 40 mg Paroxetine HCl (Paroxetine 20 Mg Tab) 20 mg PO BID [facility] Last Admin: 02/22/22 09:43 Dose: 20 mg Prednisolone Acetate (Prednisolone Acetate 1% Ophth Drops 5 Ml Btl) 1 drops RIGHT EYE TID [facility] Last Admin: 02/22/22 17:28 Dose: 1 drops Timolol Maleate (Timolol 0.5% Ophth Drops 5 Ml Btl) 1 drops RIGHT EYE BID [facility] Last Admin: 02/22/22 09:44 Dose: 1 drops Past medical history to include: Stroke with left-sided residual mild weakness, diabetes, end-stage kidney disease on peritoneal dialysis at night, poor vision from diabetic retinopathy, hypertension, hyperlipidemia, Social history: Lives with her caregiver Christine Davis, no smoking or alcohol. Physical examination: VITAL SIGNS: 97.7, 67, 20, 130/74, 96% on 2 L GENERAL: Sitting of edge of the bed, EYES: Pupils equal. Conjunctiva normal. HEENT: External appearance of nose and ears normal, oral cavity grossly normal. NECK: JVD not raised; masses not palpable. HEART: First and second heart sounds are normal; no edema. LUNGS: Respiratory rate normal; clear to auscultation. ABDOMEN: Soft, nontender, liver spleen not palpable, no masses palpable. PD catheter PSYCH: Alert and oriented x3; mood and affect normal. MUSCULOSKELETAL:No Clubbing/cyanosis;muscles-grossly intact NEUROLOGICAL: Poor eyesight; no facial asymmetry, power and sensation grossly intact. LYMPHATICS: No lymph nodes palpable in the axilla and neck INVESTIGATIONS, reviewed in the clinical context: Chest CTA: Negative for PE. Retained fluid in the esophagus. LA grade a reflux esophagitis, diffuse antral gastritis February 22: White count 10.1 hemoglobin 10.3 platelets 340 potassium 4.1 below 109 creatinine 11.1 Peritoneal fluid: WBC 5 RBC less than 2000 clear WBC 11.7 hemoglobin 11.2 platelets 326 sodium 140 potassium 4.8 BUN 109 creatinine 11.9 to Troponin I 0.030, 0.022, 0.023 COVID 19/influenza type A/type B: Not detected EKG tracing personally reviewed by me-normal sinus rhythm. T-wave changes. CT chest abdomen pelvis without contrast: Unremarkable Assessment and plan: -Patient presented 5 day history of anterior chest wall pain. : LA grade B reflux esophagitis, antral gastritis PE ruled out.. Protonix 40 mg twice a day. Add Reglan for short course. -Possible diabetic gastroparesis add Reglan. Outpatient follow-up with Dr. Samara Wiggins -End-stage kidney disease on peritoneal dialysis Peritoneal fluid unremarkable -Severe diabetic retinopathy. Patient has some residual vision in the left eye -Diabetes mellitus type 2, chronically on insulin Insulin. Follow Accu-Cheks -GERD PPI -Anxiety depression Paxil Hyperlipidemia Lipitor -Essential hypertension Norvasc, Zestril, hydralazine PPI. EGD results noted. Add Reglan. Possible gastroparesis. Discussed with kelley michel and friend in the morning. Discussed Dr. Samara Wiggins the evening. Total time spent today about 45 minutes with over 25 minutes of discussion.
[2022-02-22 18:22] LABS: Glucose,Whole Blood 95 mg/dL (70-110)
[2022-02-22] MEDS: METOCLOPRAMIDE 10 MG TAB PO SCH ×2 (18:52→21:16)
[2022-02-22 21:10] LABS: Glucose,Whole Blood 130 mg/dL (70-110)
--- NOTE | 2022-02-22 21:12 | CA ---
Transthoracic Echo Report Name: Roxy Martini Age: 56 Gender: F : 1965 Exam Date: 02/22/2022 10:17 Exam Location: [facility] Ht (in): 65 Wt (lb): 190 Ordering Physician: Zee Angeles Attending/Referring Phys: Production Floater Sera Alfonso, CINDI Procedure CPT: Indications: LV function, pericardial effusion Cardiac Hx: Technical Quality: Contrast 1: Total Dose (mL): Contrast 2: Total Dose (mL): MEASUREMENTS (Male / Female) Normal Values 2D ECHO LV Diastolic Diameter PLAX 5.1 cm 4.2 - 5.9 / 3.9 - 5.3 cm LV Systolic Diameter PLAX 4.2 cm IVS Diastolic Thickness 1.4 cm 0.6 - 1.0 / 0.6 - 0.9 cm LVPW Diastolic Thickness 1.4 cm 0.6 - 1.0 / 0.6 - 0.9 cm LV Relative Wall Thickness 0.5 RV Internal Dim ED PLAX 2.8 cm LA Systolic Diameter LX 4.4 cm 3.0 - 4.0 / 2.7 - 3.8 cm M-MODE Aortic Root Diameter MM 2.6 cm LA Systolic Diameter MM 4.8 cm LA Ao Ratio MM 1.8 MV E Point Septal Separation 0.5 cm AV Cusp Separation MM 1.7 cm FINDINGS Left Ventricle Left ventricular ejection fraction is estimated at 55%. Left ventricular cavity size normal. Mildly increased left ventricular wall thickness. Limited and suboptimal study Right Ventricle Normal right ventricular size and function. Right ventricular systolic pressure within normal limits. Right Atrium Normal right atrial size. Left Atrium Moderately increased left atrial diameter. Mitral Valve Structurally normal mitral valve. Mild mitral regurgitation. Aortic Valve Trileaflet aortic valve. Tricuspid Valve Structurally normal tricuspid valve. Pulmonic Valve Pulmonic valve not well visualized. Pericardium Small to trivial pericardial effusion. Aorta Normal size aortic root and proximal ascending aorta. CONCLUSIONS Limited study suboptimal views [place] LV systolic function is normal. There is a trivial pericardial effusion. Mild mitral and tricuspid insufficiency Previewed by: Dr. Jose Lara MD (Electronically Signed) Final Date: 22 February 2022 21:11
[2022-02-22] MEDS: INSULIN DETEMIR (LEVEMIR) 100 UNIT/ML SYR SQ SCH (21:15)
[2022-02-23] MEDS: DIALYSIS (PERIT 1.5%) 2,500 ML 37.5 G/2,500 ML BAG INTRAPERIT SCH ×5 (00:39→23:58)
[2022-02-23] MEDS: SODIUM CHLORIDE 0.9% 1,000 ML IV SCH ×2 (00:44→20:12)
[2022-02-23 06:03] LABS: Glucose,Whole Blood 58 mg/dL (70-110)
[2022-02-23] MEDS: INSULIN ASPART (NovoLOG) 100 UNIT/ML VIAL SQ SCH ×4 (06:07→21:18)
[2022-02-23 06:36] LABS: Glucose,Whole Blood 87 mg/dL (70-110)
[2022-02-23] MEDS: METOCLOPRAMIDE 10 MG TAB PO SCH ×4 (06:56→21:19)
[2022-02-23] MEDS: CALCIUM CARBONATE LIQUID 500 MG/5 ML CUP PO SCH ×3 (06:56→17:22)
[2022-02-23] MEDS: carvediloL 12.5 MG TAB PO SCH ×3 (06:56→17:26)
--- NOTE | 2022-02-23 07:29 | P.PN ---
Subjective Pt is seen for f/u for ESRD. Had 3 L UF with last exchange. Continues to have significant nausea and vomiting. Going for EGD today. Mother present at bedside. Objective - Vital Signs Vital signs: Vital Signs Temp 97.7 F 02/23/22 05:28 Pulse 68 02/23/22 06:53 Resp 16 02/23/22 06:29 BP 126/71 02/23/22 06:53 Pulse Ox 95 02/23/22 06:53 FiO2 Intake & Output 02/22/22 02/23/22 02/23/22 18:59 06:59 18:59 Intake Total 400 Balance 400 Intake: IV 400 Other: Voiding Method CAPD # Voids 2 3 - Exam Awake, nauseated, no acute distress. CVS S1 and S2 Lungs, good air entry bilaterally Abdomen is soft, nontender TABLE RUNNER , grossly intact Extremities show no edema. - Labs CBC & Chem 7: 02/22/22 04:14 02/22/22 04:14 Labs: Abnormal Lab Results - Last 24 Hours (Table) 02/22/22 02/22/22 02/22/22 Range/Units 04:14 04:14 17:49 WBC 10.19 H (4.50-10.00) X 10*3/uL RBC 3.30 L (4.10-5.20) X 10*6/uL Hgb 10.3 L (12.0-15.0) g/dL Hct 32.8 L (37.2-46.3) % MCV 99.4 H (80.0-97.0) fL MCHC 31.4 L (32.0-37.0) g/dL RDW 14.6 H (11.5-14.5) % MPV 12.3 H (9.5-12.2) fL Chloride 94 L (96-109) mmol/L Anion Gap 21.40 H (10.00-18.00) mmol/L BUN 109.0 H* (9.0-27.0) mg/dL Creatinine 11.1 H* (0.6-1.5) mg/dL Est GFR (CKD-EPI)AfAm 4.0 L (60.0-200.0) Est GFR (CKD-EPI)NonAf 3.4 L (60.0-200.0) BUN/Creatinine Ratio 9.82 L (12.00-20.00) Ratio Glucose 112 H (70-110) mg/dL POC Glucose (mg/dL) 65 L (70-110) mg/dL 02/22/22 02/23/22 Range/Units 21:08 06:01 WBC (4.50-10.00) X 10*3/uL RBC (4.10-5.20) X 10*6/uL Hgb (12.0-15.0) g/dL Hct (37.2-46.3) % MCV (80.0-97.0) fL MCHC (32.0-37.0) g/dL RDW (11.5-14.5) % MPV (9.5-12.2) fL Chloride (96-109) mmol/L Anion Gap (10.00-18.00) mmol/L BUN (9.0-27.0) mg/dL Creatinine (0.6-1.5) mg/dL Est GFR (CKD-EPI)AfAm (60.0-200.0) Est GFR (CKD-EPI)NonAf (60.0-200.0) BUN/Creatinine Ratio (12.00-20.00) Ratio Glucose (70-110) mg/dL POC Glucose (mg/dL) 130 H 58 L (70-110) mg/dL Microbiology - Last 24 Hours (Table) 02/21/22 21:28 Gram Stain - Preliminary Peritoneal Fluid Body Fluid Culture - Preliminary Assessment and Plan Assessment: 1. End-stage renal disease on peritoneal dialysis 2. Chest pain, no evidence of cardiac etiology. Mostly GI related, going for EGD today 3. CK D mineral bone disorder 4. Hypertension with CK D stage IV Plan: Change to 1.5% soln exchanges for all exchanges
--- NOTE | 2022-02-23 09:10 | P.PN ---
Subjective Progress Note Date: 02/23/22 Principal diagnosis: Epigastric pain This is a pleasant 56-year-old female who presented to the emergency department with complaints of weakness, chest pain, and pain radiating into her neck. Patient states the pain has been going on for the last 2 days duration. She has a past medical history including end-stage renal disease on peritoneal dialysis, coronary artery disease, blindness. Patient states symptoms started since last Sunday, which she is having intermittent pain with swallowing. She states is in the epigastric region. She states otherwise her pain is in her chest and across her chest and will radiate up to her neck as well. She states she feels increasingly weak as well and short of breath. States that she recently was having neck and back pain and went to see a chiropractor. Last Sunday she saw the chiropractor again for another adjustment and states the pain has been worse since then. She is tender to touch along her chest wall. She also had a cardiac catheterization approximately 2 weeks ago which she states that there was some narrowing but she did not have to undergo cyst stenting. She denies any difficulty with food getting stuck when she is swallowing, no nausea or vomiting. No previous EGD in the past or history of peptic ulcer disease. States she had a colonoscopy within the last 4 years done at [facility] which was normal. She had a CT of the abdomen and pelvis with no acute findings in the abdomen. 02/22/2022: Patient was seen and examined today as follow-up for epigastric pain. She had a difficult night with abdominal pain/epigastric pain, nausea and vomiting. She's had several episodes of bile appearing emesis, nonbloody. WBC 10 hemoglobin 10 platelet count 340,000, CMP pending. 02/23/2022: Patient was seen and examined today as a follow-up for epigastric pain and nausea and vomiting. Yesterday she underwent EGD with findings of diffuse antral gastritis, erythema with erosions in the mid and distal esophagus consistent with LA grade B reflux esophagitis, and retained liquid in the stomach but no evidence of gastric outlet obstruction. Patient states she is feeling much better today. Epigastric discomfort has improved, she is not having any nausea or vomiting. She is tolerating her diet. Objective - Vital Signs Vital signs: Vital Signs Temp 97.7 F 02/23/22 05:28 Pulse 68 02/23/22 06:53 Resp 16 02/23/22 06:29 BP 126/71 02/23/22 06:53 Pulse Ox 95 02/23/22 06:53 FiO2 Intake & Output 02/22/22 02/23/22 02/23/22 18:59 06:59 18:59 Intake Total 400 Balance 400 Intake: IV 400 Other: Voiding Method CAPD # Voids 2 3 - Exam General appearance: The patient is alert, oriented, appears in no acute distress. HET: Head is normocephalic and atraumatic. Conjunctiva pink. Sclera anicteric. Neck: Supple without lymphadenopathy. Abdomen: Soft, mild epigastric tenderness, nondistended with bowel sounds. No guarding or rigidity. Extremities: Normal skin color and turgor. No pedal edema Skin: No rashes, no jaundice Neurological: No focal deficits. Alert and oriented. - Labs CBC & Chem 7: 02/22/22 04:14 02/22/22 04:14 Labs: Abnormal Lab Results - Last 24 Hours (Table) 02/22/22 02/22/22 02/22/22 Range/Units 04:14 04:14 17:49 WBC 10.19 H (4.50-10.00) X 10*3/uL RBC 3.30 L (4.10-5.20) X 10*6/uL Hgb 10.3 L (12.0-15.0) g/dL Hct 32.8 L (37.2-46.3) % MCV 99.4 H (80.0-97.0) fL MCHC 31.4 L (32.0-37.0) g/dL RDW 14.6 H (11.5-14.5) % MPV 12.3 H (9.5-12.2) fL Chloride 94 L (96-109) mmol/L Anion Gap 21.40 H (10.00-18.00) mmol/L BUN 109.0 H* (9.0-27.0) mg/dL Creatinine 11.1 H* (0.6-1.5) mg/dL Est GFR (CKD-EPI)AfAm 4.0 L (60.0-200.0) Est GFR (CKD-EPI)NonAf 3.4 L (60.0-200.0) BUN/Creatinine Ratio 9.82 L (12.00-20.00) Ratio Glucose 112 H (70-110) mg/dL POC Glucose (mg/dL) 65 L (70-110) mg/dL 02/22/22 02/23/22 Range/Units 21:08 06:01 WBC (4.50-10.00) X 10*3/uL RBC (4.10-5.20) X 10*6/uL Hgb (12.0-15.0) g/dL Hct (37.2-46.3) % MCV (80.0-97.0) fL MCHC (32.0-37.0) g/dL RDW (11.5-14.5) % MPV (9.5-12.2) fL Chloride (96-109) mmol/L Anion Gap (10.00-18.00) mmol/L BUN (9.0-27.0) mg/dL Creatinine (0.6-1.5) mg/dL Est GFR (CKD-EPI)AfAm (60.0-200.0) Est GFR (CKD-EPI)NonAf (60.0-200.0) BUN/Creatinine Ratio (12.00-20.00) Ratio Glucose (70-110) mg/dL POC Glucose (mg/dL) 130 H 58 L (70-110) mg/dL Microbiology - Last 24 Hours (Table) 02/21/22 21:28 Gram Stain - Preliminary Peritoneal Fluid Body Fluid Culture - Preliminary Assessment and Plan (1) Epigastric pain Narrative/Plan: 56-year-old female with a history of coronary artery disease presented to the emergency department with chest pain radiating into her neck. Patient also states she's been having intermittent pain with swallowing mostly in the epigastric region. He denies any previous history of dysphagia, no history of peptic ulcer disease. She denies any previous history of EGD but has had a recent colonoscopy within the last 4 years duration at [facility] but she states was normal. Patient with atypical chest pain, possible GERD. Will treat with PPI and allow cardiology further workup. Cardiology has seen patient and cleared her of any acute coronary event and cleared her to undergo any further GI workup. Plan for patient to undergo EGD this afternoon. Avelino ordered 1, continue with Zofran and PPI twice a day. Patient underwent EGD with findings of diffuse antral gastritis and a late grade B reflux esophagitis as well as some retained liquid in the stomach but no evidence of gastric outlet obstruction. May be some component of gastroparesis related to underlying diabetes. Discussed with patient eats small frequent meals, and do not eat 2 hours prior to bed. Continue with Protonix 40 mg twice a day. Follow-up with Dr. Bright 4 weeks. Current Visit: Yes Status: Acute Code(s): R10.13 - EPIGASTRIC PAIN SNOMED Code(s): 42415283 (2) Chest pain Narrative/Plan: cardiology following Current Visit: Yes Status: Acute Code(s): R07.9 - CHEST PAIN, UNSPECIFIED SNOMED Code(s): 19258642 Plan: 1. Continue symptomatic and supportive care 2. Protonix 40 mg twice a day 3. Patient may have consistent carbohydrate diet 4. Cardiology on consult, patient cleared of any acute coronary event, also cleared to undergo any GI workup. 5. Continue antiemetics as needed 6. Continue with recommendations from nephrology 7. Discussed with patient recommendation for small frequent meals, no eating 2 hours prior to bedtime. Follow-up with Dr. Wiggins in 4 weeks. Thank you for this consultation, we will sign off at this time.. Dr. Samara Wiggins I agree with the dictator's note, documented as a scribe by Cynthia Bautista.
[2022-02-23 09:16] LABS: Albumin 3.8 g/dL (3.8-4.9); Albumin/Globulin Ratio 1.46 (1.60-3.17); Globulin 2.6 g/dL (1.6-3.3); Non-African American GFR(CKD) 3.4 (60.0-200.0); Total Bilirubin 0.3 mg/dL (0.30-1.20); Total Protein 6.4 g/dL (6.2-8.2)
--- NOTE | 2022-02-23 09:56 | P.PN ---
Subjective This is a pleasant 56-year-old female past medical history significant for end- stage renal disease on peritoneal dialysis, coronary artery disease with moderate severe stenosis involving the ostial portion, mild to moderate disease involving the circumflex and LAD recent cath 12/2021, type 2 diabetes, hypertension, dyslipidemia, diabetic retinopathy, GERD . She follows in the office with Dr. Wiggins. We have been asked to see in consultation for chest pain. Patient presents to the emergency department with complaints of chest pain that radiated across her chest. Also with neck pain in the back of her neck. The pain comes and goes. It is not always exertional. She had associated nausea and episode of vomiting. She also endorses generalized weakness and tiredness. Her chest pain is aggravated with palpation to the chest. She denies any shortness of breath, lightheadedness, dizziness, syncope or near syncope. She denies any tobacco or alcohol use. DIAGNOSTICS * Last Cardiac Catheterization 01/18/2022 revealed heavily calcified coronary arteries, severe stenosis involving the ostial portion of the posterior left ventricle branch, mild to moderate disease involving the circumflex coronary artery and LAD shows 3040 percent stenosis in the midportion and involving diagonal branch. * Echocardiogram in the office 03/2021 revealed EF 55%, small hypokinetic areas of inferior inferoseptal vasquez at the base. Moderate concentric LVH, mild to moderate mitral regurgitation 02/23 Patient seen and examined at bedside, her nausea and vomiting has improved. Denies any chest pain or shortness of breath. She underwent EGD yesterday with GI and revealed diffuse antral gastritis, erythema with erosions in the mid and distal esophagus consistent with LA grade B reflux esophagitis, and retained liquid in the stomach but no evidence of gastric outlet obstruction. Her vital signs are stable. Tolerating her current diet. Echo revealed EF 55%, mild mitral regurgitation, trivial pericardial effusion. PHYSICAL EXAMINATION Vitals reviewed CONSTITUTIONAL: No apparent distress. HEENT: Head is normocephalic. No JVD. CHEST EXAMINATION: Lungs are clear to auscultation. There is chest wall tenderness is noted on palpation to the anterior chest HEART EXAMINATION: Regular rate and rhythm. S1, S2 heard. Systolic murmur at apex. No gallops or rub. ABDOMEN: Soft, nontender. Positive bowel sounds. EXTREMITIES: 2+ peripheral pulses, no lower extremity edema and no calf tenderness. NEUROLOGIC EXAMINATION: Patient is awake, alert and oriented x3. ASSESSMENT Chest pain, acute coronary syndrome has been ruled out. Possibly musculoskeletal with pain reproducible on exam Neck pain, with movement Nausea and vomiting S/p EGD 02/22 that revealed diffuse antral gastritis, erythema with erosions in the mid and distal esophagus consistent with LA grade B reflux esophagitis, and retained liquid in the stomach but no evidence of gastric outlet obstruction. End-stage renal disease on peritoneal dialysis, coronary artery disease with moderate severe stenosis involving the ostial portion, mild to moderate disease involving the circumflex and LAD recent cath 12/2021 Type 2 diabetes Hypertension Dyslipidemia Diabetic retinopathy GERD PLAN An acute coronary event has been ruled out with no EKG evidence of ischemia and negative cardiac enzymes. Recommend continuing optimal medical therapy GI following From a cardiology perspective, no further inpatient workup indicated at this time. Continue home cardiac medications and follow up with Dr. Wiggins in 2 weeks Nurse practitioner note has been reviewed by physician. Signing provider agrees with the documented findings, assessment, and plan of care. Objective - Vital Signs Vital signs: Vital Signs Temp 97.8 F 02/23/22 08:33 Pulse 66 02/23/22 08:33 Resp 16 02/23/22 08:33 BP 103/64 02/23/22 08:33 Pulse Ox 95 02/23/22 08:33 FiO2 Intake & Output 02/22/22 02/23/22 02/23/22 18:59 06:59 18:59 Intake Total 400 Balance 400 Intake: IV 400 Other: Voiding Method CAPD # Voids 2 3 - Labs CBC & Chem 7: 02/22/22 04:14 02/22/22 04:14 Labs: Abnormal Lab Results - Last 24 Hours (Table) 02/22/22 02/22/22 02/22/22 Range/Units 04:14 17:49 21:08 Chloride 94 L (96-109) mmol/L Anion Gap 21.40 H (10.00-18.00) mmol/L BUN 109.0 H* (9.0-27.0) mg/dL Creatinine 11.1 H* (0.6-1.5) mg/dL Est GFR (CKD-EPI)AfAm 4.0 L (60.0-200.0) Est GFR (CKD-EPI)NonAf 3.4 L (60.0-200.0) BUN/Creatinine Ratio 9.82 L (12.00-20.00) Ratio Glucose 112 H (70-110) mg/dL POC Glucose (mg/dL) 65 L 130 H (70-110) mg/dL AST 10 L (13-35) U/L Albumin/Globulin Ratio 1.46 L (1.60-3.17) g/dL 02/23/22 Range/Units 06:01 Chloride (96-109) mmol/L Anion Gap (10.00-18.00) mmol/L BUN (9.0-27.0) mg/dL Creatinine (0.6-1.5) mg/dL Est GFR (CKD-EPI)AfAm (60.0-200.0) Est GFR (CKD-EPI)NonAf (60.0-200.0) BUN/Creatinine Ratio (12.00-20.00) Ratio Glucose (70-110) mg/dL POC Glucose (mg/dL) 58 L (70-110) mg/dL AST (13-35) U/L Albumin/Globulin Ratio (1.60-3.17) g/dL Microbiology - Last 24 Hours (Table) 02/21/22 21:28 Gram Stain - Preliminary Peritoneal Fluid Body Fluid Culture - Preliminary
[2022-02-23] MEDS: TIMOLOL 0.5% OPHTH DROPS 5 ML BTL RIGHT EYE SCH ×2 (10:02→21:19)
[2022-02-23] MEDS: amLODIPine 10 MG TAB PO SCH (10:04)
[2022-02-23] MEDS: PARoxetine 20 MG TAB PO SCH ×2 (10:04→21:19)
[2022-02-23] MEDS: ASPIRIN 81 MG PO SCH (10:04)
[2022-02-23] MEDS: ATORVASTATIN 20 MG TAB PO SCH (10:05)
[2022-02-23] MEDS: BRIMONIDINE TARTRATE 0.2% DROPS 5 ML BTL RIGHT EYE SCH ×2 (10:06→21:20)
[2022-02-23] MEDS: prednisoLONE ACETATE 1% OPHTH DROPS 5 ML BTL RIGHT EYE SCH ×3 (10:07→21:20)
[2022-02-23] MEDS ORDERED: LACTULOSE 20 GM/30 ML CUP PO ONE (11:24)
--- NOTE | 2022-02-23 12:09 | P.PN ---
Subjective Patient is seen for follow-up for end-stage renal disease. She is status post EGD which showed diffuse antral gastritis and erythema with erosions in the mid and distal esophagus. Patient is much more comfortable today. No complaints of chest pain nausea or vomiting. It appears that the night nurse had trouble with PD, in terms of connection ho wever this issue seems to have resolved and patient is scheduled for an exchange now. Objective - Vital Signs Vital signs: Vital Signs Temp 97.8 F 02/23/22 08:33 Pulse 66 02/23/22 08:33 Resp 16 02/23/22 08:33 BP 108/72 02/23/22 09:56 Pulse Ox 95 02/23/22 08:33 FiO2 Intake & Output 02/22/22 02/23/22 02/23/22 18:59 06:59 18:59 Intake Total 400 Balance 400 Intake: IV 400 Other: Voiding Method CAPD # Voids 2 3 - Exam Awake, nauseated, no acute distress. CVS S1 and S2 Lungs, good air entry bilaterally Abdomen is soft, nontender [employer]ATOR , grossly intact Extremities show no edema. - Labs CBC & Chem 7: 02/22/22 04:14 02/22/22 04:14 Labs: Abnormal Lab Results - Last 24 Hours (Table) 02/22/22 02/22/22 02/22/22 Range/Units 04:14 17:49 21:08 Chloride 94 L (96-109) mmol/L Anion Gap 21.40 H (10.00-18.00) mmol/L BUN 109.0 H* (9.0-27.0) mg/dL Creatinine 11.1 H* (0.6-1.5) mg/dL Est GFR (CKD-EPI)AfAm 4.0 L (60.0-200.0) Est GFR (CKD-EPI)NonAf 3.4 L (60.0-200.0) BUN/Creatinine Ratio 9.82 L (12.00-20.00) Ratio Glucose 112 H (70-110) mg/dL POC Glucose (mg/dL) 65 L 130 H (70-110) mg/dL AST 10 L (13-35) U/L Albumin/Globulin Ratio 1.46 L (1.60-3.17) g/dL 02/23/22 Range/Units 06:01 Chloride (96-109) mmol/L Anion Gap (10.00-18.00) mmol/L BUN (9.0-27.0) mg/dL Creatinine (0.6-1.5) mg/dL Est GFR (CKD-EPI)AfAm (60.0-200.0) Est GFR (CKD-EPI)NonAf (60.0-200.0) BUN/Creatinine Ratio (12.00-20.00) Ratio Glucose (70-110) mg/dL POC Glucose (mg/dL) 58 L (70-110) mg/dL AST (13-35) U/L Albumin/Globulin Ratio (1.60-3.17) g/dL Microbiology - Last 24 Hours (Table) 02/21/22 21:28 Gram Stain - Preliminary Peritoneal Fluid Body Fluid Culture - Preliminary Assessment and Plan Assessment: 1. End-stage renal disease on peritoneal dialysis 2. Chest pain, no evidence of cardiac etiology. Mostly GI related, status post EGD which showed diffuse antral gastritis with erythema and erosions in the mid and distal esophagus. 3. CK D mineral bone disorder 4. Hypertension with CK D stage IV Plan: Change to 1.5% soln exchanges for all exchanges Lactulose for constipation
[2022-02-23 12:32] LABS: Glucose,Whole Blood 138 mg/dL (70-110)
--- NOTE | 2022-02-23 15:06 | P.PN ---
Progress Note - Text Progress Note Date: 02/23/22 Chief Complaint: Chest pain This is a pleasant 56-year-old patient who follows with Dr. Mel Buckley. Chronic stable medical conditions include stroke with some mild left-sided weakness with the patient also balance, end-stage kidney disease on antiretroviral dialysis fo r last 5 months, poor vision with some residual vision in the left eye, hypertension, hyperlipidemia,. For about 5 days patient has been noted exiting some anterior chest wall pain. Sometimes going to the neck. She thought this could be a cervical polyp noted [place] and see the chiropractor. He did manipulation/cracked and neck with no change. She noticed that patient is also been short of breath. Feels easily tired. No fever no chills. The pain is sometimes worse with a deep breath. No swelling of the lower extremity. She also describes a burning sensation from epigastric area up to the throat. Computed tomography scan chest abdomen pelvis without contrast in the ER was unremarkable. 02/22/2022: Seen by me earlier this morning. Patient friend and POA is present. Nothing by mouth for endoscopy. Computed tomography scan did show retention esophagitis. Later this afternoon patient did undergo EGD by Dr. Cooley. Found to have diffuse antral gastritis, and LA grade B reflux esophagitis. No evidence of gastric outlet obstruction. 02/23/2022: Discussed with the patient and her by mouth at the bedside. Instructions about sitting up a chair and activity including ambulating after meals. There is scheduling issue with outpatient peritoneal dialysis has patient cannot be discharged today. Discussed with nurse. Discussed with Dr. Hope. EGD results discussed yesterday evening with Dr. Samara Wiggins. Give a short course of Reglan. Active Medications Acetaminophen (Acetaminophen Tab 325 Mg Tab) 325 mg PO Q4H PRN PRN Reason: Mild Pain Last Admin: 02/22/22 03:51 Dose: 325 mg Amlodipine Besylate (Amlodipine 10 Mg Tab) 10 mg PO DAILY [facility] Last Admin: 02/23/22 10:04 Dose: 10 mg Aspirin (Aspirin 81 Mg) 81 mg PO DAILY [facility] Last Admin: 02/23/22 10:04 Dose: 81 mg Atorvastatin Calcium (Atorvastatin 20 Mg Tab) 20 mg PO DAILY [facility] Last Admin: 02/23/22 10:05 Dose: 20 mg Atropine Sulfate (Atropine Ophth Soln 1% 5ml Btl) 1 drops RIGHT EYE DAILY PRN PRN Reason: eye irritation Brimonidine Tartrate (Brimonidine Tartrate 0.2% Drops 5 Ml Btl) 1 drops RIGHT EYE BID [facility] Last Admin: 02/23/22 10:06 Dose: 1 drops Calcitriol (Calcitriol 0.25 Mcg Cap) 0.25 mcg PO MOWEFR [facility] Last Admin: 02/22/22 09:42 Dose: 0.25 mcg Calcium Carbonate/Glycine (Calcium Carbonate Liquid 500 Mg/5 Ml Cup) 500 mg PO TID-W/MEALS [facility] Last Admin: 02/23/22 13:51 Dose: 500 mg Carvedilol (Carvedilol 12.5 Mg Tab) 25 mg PO AC-BID [facility] Last Admin: 02/23/22 06:56 Dose: 25 mg Dextrose/Water (Dextrose 50% Syringe 50 Ml) 25 ml IVP PER PROTOCOL PRN; Protocol PRN Reason: Hypoglycemia Dextrose/Water (Dextrose 50% Syringe 50 Ml) 50 ml IVP PER PROTOCOL PRN; Protocol PRN Reason: Hypoglycemia Sodium Chloride (Saline 0.9%) 1,000 mls @ 75 mls/hr IV .[id number] [facility] Last Admin: 02/23/22 00:44 Dose: Not Given Peritoneal Dialysis Solution (Delflex With 1.5% Dextrose (2,500 Ml)) 37.5 g in 2,500 mls @ 0 mls/hr INTRAPERIT Q6HR [facility]; Protocol Last Admin: 02/23/22 12:10 Dose: 1 mls/hr Insulin Aspart (Insulin Aspart (Novolog) 100 Unit/Ml Vial) 0 unit SQ [facility]; Protocol Last Admin: 02/23/22 12:41 Dose: Not Given Insulin Detemir (Insulin Detemir (Levemir) 100 Unit/Ml Syr) 30 unit SQ [facility] Last Admin: 02/22/22 21:15 Dose: 30 unit Metoclopramide HCl (Metoclopramide 10 Mg Tab) 10 mg PO [facility] Last Admin: 02/23/22 13:52 Dose: 10 mg Naloxone HCl (Naloxone 0.4 Mg/Ml 1 Ml Vial) 0.2 mg IV Q2M PRN PRN Reason: Opioid Reversal Ondansetron HCl (Ondansetron 4 Mg/2 Ml Vial) 4 mg IVP Q6HR PRN PRN Reason: Nausea And Vomiting Last Admin: 02/22/22 12:02 Dose: 4 mg Pantoprazole Sodium (Pantoprazole 40 Mg Tablet) 40 mg PO AC-BID [facility] Paroxetine HCl (Paroxetine 20 Mg Tab) 20 mg PO BID [facility] Last Admin: 02/23/22 10:04 Dose: 20 mg Prednisolone Acetate (Prednisolone Acetate 1% Ophth Drops 5 Ml Btl) 1 drops RIGHT EYE TID [facility] Last Admin: 02/23/22 10:07 Dose: 1 drops Timolol Maleate (Timolol 0.5% Ophth Drops 5 Ml Btl) 1 drops RIGHT EYE BID [facility] Last Admin: 02/23/22 10:02 Dose: 1 drops Past medical history to include: Stroke with left-sided residual mild weakness, diabetes, end-stage kidney disease on peritoneal dialysis at night, poor vision from diabetic retinopathy, hypertension, hyperlipidemia, Social history: Lives with her caregiver Christine Davis, no smoking or alcohol. Physical examination: VITAL SIGNS: 97.6, 66, 18, 123/74, 96% room air GENERAL: Reclining in bed, comfortable EYES: Pupils equal. Conjunctiva normal. HEENT: External appearance of nose and ears normal, oral cavity grossly normal. NECK: JVD not raised; masses not palpable. HEART: First and second heart sounds are normal; no edema. LUNGS: Respiratory rate normal; clear to auscultation. ABDOMEN: Soft, nontender, liver spleen not palpable, no masses palpable. PD catheter PSYCH: Alert and oriented x3; mood and affect normal. MUSCULOSKELETAL:No Clubbing/cyanosis;muscles-grossly intact INVESTIGATIONS, reviewed in the clinical context: Chest CTA: Negative for PE. Retained fluid in the esophagus. LA grade a reflux esophagitis, diffuse antral gastritis February 22: White count 10.1 hemoglobin 10.3 platelets 340 potassium 4.1 below 109 creatinine 11.1 Peritoneal fluid: WBC 5 RBC less than 2000 clear WBC 11.7 hemoglobin 11.2 platelets 326 sodium 140 potassium 4.8 BUN 109 creatinine 11.9 to Troponin I 0.030, 0.022, 0.023 COVID 19/influenza type A/type B: Not detected EKG tracing personally reviewed by me-normal sinus rhythm. T-wave changes. CT chest abdomen pelvis without contrast: Unremarkable Assessment and plan: -Patient presented 5 day history of anterior chest wall pain. : LA grade B reflux esophagitis, antral gastritis PE ruled out.. Protonix 40 mg twice a day. Add Reglan for short course. -Probable diabetic gastroparesis Reglan. Outpatient follow-up with Dr. Samara Wiggins -End-stage kidney disease on peritoneal dialysis Peritoneal fluid unremarkable -Severe diabetic retinopathy. Patient has some residual vision in the left eye -Diabetes mellitus type 2, chronically on insulin Insulin. Follow Accu-Cheks -GERD PPI -Anxiety depression Paxil Hyperlipidemia Lipitor -Essential hypertension Norvasc, Zestril, hydralazine PPI. Reglan. Discussed with patient and POA in detail.. Activity including upright position after meals ambulation also discussed. Discussed with Dr. Hope. There is a problem with the PD catheter and scheduling, hence patient discharged to be held until tomorrow.
[2022-02-23 17:02] LABS: Glucose,Whole Blood 186 mg/dL (70-110)
[2022-02-23] MEDS: PANTOPRAZOLE 40 MG TABLET PO SCH (17:23)
[2022-02-23 20:52] LABS: Glucose,Whole Blood 93 mg/dL (70-110)
[2022-02-23] MEDS: INSULIN DETEMIR (LEVEMIR) 100 UNIT/ML SYR SQ SCH (21:19)
[2022-02-24 00:54] LABS: Glucose,Whole Blood 147 mg/dL (70-110)
[2022-02-24] MEDS: SODIUM CHLORIDE 0.9% 1,000 ML IV SCH (03:24)
[2022-02-24] MEDS: DIALYSIS (PERIT 1.5%) 2,500 ML 37.5 G/2,500 ML BAG INTRAPERIT SCH (05:16)
[2022-02-24 06:31] LABS: Glucose,Whole Blood 94 mg/dL (70-110)
[2022-02-24] MEDS: INSULIN ASPART (NovoLOG) 100 UNIT/ML VIAL SQ SCH (06:38)
[2022-02-24] MEDS: CALCIUM CARBONATE LIQUID 500 MG/5 ML CUP PO SCH (06:42)
[2022-02-24] MEDS: METOCLOPRAMIDE 10 MG TAB PO SCH (06:42)
[2022-02-24] MEDS: PANTOPRAZOLE 40 MG TABLET PO SCH (06:42)
[2022-02-24] MEDS: carvediloL 12.5 MG TAB PO SCH (06:42)
[2022-02-24 07:22] VITALS: BP 125/72; PULSE 68; RESP 16; TEMP 97.9
[2022-02-24] MEDS: ASPIRIN 81 MG PO SCH (07:54)
[2022-02-24] MEDS: amLODIPine 10 MG TAB PO SCH (07:54)
[2022-02-24] MEDS: ATORVASTATIN 20 MG TAB PO SCH (07:54)
[2022-02-24] MEDS: PARoxetine 20 MG TAB PO SCH (07:55)
[2022-02-24] MEDS: BRIMONIDINE TARTRATE 0.2% DROPS 5 ML BTL RIGHT EYE SCH (07:55)
[2022-02-24] MEDS: prednisoLONE ACETATE 1% OPHTH DROPS 5 ML BTL RIGHT EYE SCH (07:55)
[2022-02-24] MEDS: TIMOLOL 0.5% OPHTH DROPS 5 ML BTL RIGHT EYE SCH (07:56)
--- NOTE | 2022-02-24 17:16 | P.DS ---
Providers Date of admission: 02/21/22 08:09 Expected date of discharge: 02/24/22 Attending physician: Junaid Espinoza Consults: 02/21/22 08:07 Consult Physician Urgent Consulting Provider: [facility] Consult Reason/Comments: chest pain Do you want consulting provider notified?: Yes Consult Physician Urgent Consulting Provider: Hermelinda Hope Consult Reason/Comments: peritoneal dialysis patient Do you want consulting provider notified?: Yes Primary care physician: Candi Buckley [facility] Hospital Course: Chief Complaint: Chest pain This is a pleasant 56-year-old patient who follows with Dr. Mel Buckley. Chronic stable medical conditions include stroke with some mild left-sided weakness with the patient also balance, end-stage kidney disease on antiretroviral dialysis for last 5 months, poor vision with some residual vision in the left eye, hypertension, hyperlipidemia,. For about 5 days patient has been noted exiting some anterior chest wall pain. Sometimes going to the neck. She thought this could be a cervical polyp noted [place] and see the chiropractor. He did manipulation/cracked and neck with no change. She noticed that patient is also been short of breath. Feels easily tired. No fever no chills. The pain is sometimes worse with a deep breath. No swelling of the lower extremity. She also describes a burning sensation from epigastric area up to the throat. Computed tomography scan chest abdomen pelvis without contrast in the ER was unremarkable. 02/22/2022: Seen by me earlier this morning. Patient friend and POA is present. Nothing by mouth for endoscopy. Computed tomography scan did show retention esophagitis. Later this afternoon patient did undergo EGD by Dr. Cooley. Found to have diffuse antral gastritis, and LA grade B reflux esophagitis. No evidence of gastric outlet obstruction. 02/23/2022: Discussed with the patient and her by mouth at the bedside. Instructions about sitting up a chair and activity including ambulating after meals. There is scheduling issue with outpatient peritoneal dialysis has patient cannot be discharged today. Discussed with nurse. Discussed with Dr. Hope. EGD results discussed yesterday evening with Dr. Samara Wiggins. Give a short course of Reglan. 02/24/2022: Patient responded well to Reglan. Eating well. Eating habits upright position discussed again. Patient have a peritoneal catheter corrected outpatient today. He'll follow up with Dr. Samara Wiggins. Questions answered. Zestril discontinued. Hydralazine discontinued. Discussion and discharge planning more than 35 minutes Past medical history to include: Stroke with left-sided residual mild weakness, diabetes, end-stage kidney disease on peritoneal dialysis at night, poor vision from diabetic retinopathy, hypertension, hyperlipidemia, Social history: Lives with her caregiver Christine Davis, no smoking or alcohol. Physical examination: VITAL SIGNS: 97.9, 68, 16, 125-72, 94% room air GENERAL: Reclining in bed, comfortable EYES: Pupils equal. Conjunctiva normal. HEENT: External appearance of nose and ears normal, oral cavity grossly normal. NECK: JVD not raised; masses not palpable. HEART: First and second heart sounds are normal; no edema. LUNGS: Respiratory rate normal; clear to auscultation. ABDOMEN: Soft, nontender, liver spleen not palpable, no masses palpable. PD catheter PSYCH: Alert and oriented x3; mood and affect normal. MUSCULOSKELETAL:No Clubbing/cyanosis;muscles-grossly intact INVESTIGATIONS, reviewed in the clinical context: Chest CTA: Negative for PE. Retained fluid in the esophagus. LA grade a reflux esophagitis, diffuse antral gastritis February 22: White count 10.1 hemoglobin 10.3 platelets 340 potassium 4.1 below 109 creatinine 11.1 Peritoneal fluid: WBC 5 RBC less than 2000 clear WBC 11.7 hemoglobin 11.2 platelets 326 sodium 140 potassium 4.8 BUN 109 creatinine 11.9 to Troponin I 0.030, 0.022, 0.023 COVID 19/influenza type A/type B: Not detected EKG tracing personally reviewed by me-normal sinus rhythm. T-wave changes. CT chest abdomen pelvis without contrast: Unremarkable Assessment and plan: -Patient presented 5 day history of anterior chest wall pain. : LA grade B reflux esophagitis, antral gastritis PE ruled out.. Protonix 40 mg twice a day. -Probable diabetic gastroparesis Reglan started. Outpatient follow-up with Dr. Samara Wiggins -End-stage kidney disease on peritoneal dialysis Peritoneal fluid unremarkable -Severe diabetic retinopathy. Patient has some residual vision in the left eye -Diabetes mellitus type 2, chronically on insulin Insulin. Follow Accu-Cheks -GERD PPI -Anxiety depression Paxil Hyperlipidemia Lipitor -Essential hypertension Norvasc, Disposition: Home Patient Condition at Discharge: Stable Plan - Discharge Summary Discharge Rx Participant: No New Discharge Prescriptions: New Pantoprazole [Protonix] 40 mg PO AC-BID #60 tab Metoclopramide [Reglan] 10 mg PO AC-TID #42 tab Continue amLODIPine [Norvasc] 10 mg PO DAILY Brimonidine Tartrate/Timolol [Combigan 0.2%-0.5% Eye Drops] 1 drop RIGHT EYE BID Atropine Sulfate [Atropine Sulfate 1% Ophth Oint] 1 applic RIGHT EYE DAILY PRN PRN Reason: Inflammation L.acidoph,Paracasei, B.lactis [Probiotic] 1 cap PO Q2D Acetaminophen [Tylenol] 325 mg PO Q4H PRN PRN Reason: Pain Lanthanum Carbonate [Lanthanum Carbonate Chew] 500 mg PO DIRECTED PRN PRN Reason: snacks Insulin Aspart [NovoLOG Flexpen] See Protocol SQ AC-TID Furosemide [Lasix] 80 mg PO BID PARoxetine [Paxil] 20 mg PO BID Atorvastatin [Lipitor] 20 mg PO DAILY carvediloL [Coreg] 25 mg PO BID calcitrioL [Calcitriol] 0.25 mcg PO MOWEFR Lanthanum Carbonate [Lanthanum Carbonate Chew] 1,000 mg PO AC-TID Changed Insulin Glargine,Hum.rec.anlog [Lantus Solostar Pen] 26 units SQ HS #0 Discontinued hydrALAZINE HCL [Apresoline] 50 mg PO TID Prednisolone Acetate/Pf [Prednisolone Acet 1% Eye Drop] 1 drop RIGHT EYE TID Omeprazole 40 mg PO DAILY predniSONE See Taper PO DIRECTED Docusate [Colace] 100 mg PO DAILY PRN PRN Reason: Constipation lisinopriL [Zestril] 10 mg PO DAILY Docusate Oral Soln [Colace Oral Soln] 100 mg PO DAILY PRN PRN Reason: Constipation Discharge Medication List Atorvastatin [Lipitor] 20 mg PO DAILY 01/10/22 [History] Atropine Sulfate [Atropine Sulfate 1% Ophth Oint] 1 applic RIGHT EYE DAILY PRN 01/10/22 [History] Brimonidine Tartrate/Timolol [Combigan 0.2%-0.5% Eye Drops] 1 drop RIGHT EYE BID 01/10/22 [History] PARoxetine [Paxil] 20 mg PO BID 01/10/22 [History] amLODIPine [Norvasc] 10 mg PO DAILY 01/10/22 [History] calcitrioL [Calcitriol] 0.25 mcg PO MOWEFR 01/10/22 [History] carvediloL [Coreg] 25 mg PO BID 01/10/22 [History] Acetaminophen [Tylenol] 325 mg PO Q4H PRN 02/21/22 [History] Furosemide [Lasix] 80 mg PO BID 02/21/22 [History] Insulin Aspart [NovoLOG Flexpen] See Protocol SQ AC-TID 02/21/22 [History] L.acidoph,Paracasei, B.lactis [Probiotic] 1 cap PO Q2D 02/21/22 [History] Lanthanum Carbonate [Lanthanum Carbonate Chew] 1,000 mg PO AC-TID 02/21/22 [History] Lanthanum Carbonate [Lanthanum Carbonate Chew] 500 mg PO DIRECTED PRN 02/21/22 [History] Pantoprazole [Protonix] 40 mg PO AC-BID #60 tab 02/23/22 [Rx] Insulin Glargine,Hum.rec.anlog [Lantus Solostar Pen] 26 units SQ HS #0 02/24/22 [Rx] Metoclopramide [Reglan] 10 mg PO AC-TID #42 tab 02/24/22 [Rx] Follow up Appointment(s)/Referral(s): Carolyne Wiggins MD [STAFF PHYSICIAN] - 2 Weeks (Call for biopsy results) Candi Buckley MD [Primary Care Provider] - 1-2 days Bryan Wiggins MD [STAFF PHYSICIAN] - 03/08/22 2:45 pm Patient Instructions/Handouts: Acute Nausea and Vomiting (DC), Epigastric Pain (ED) Discharge Disposition: HOME SELF-CARE
== END 2022-02-24 11:38 | disposition home or self-care (01) ==
LOC: EC 02:43 → 6NMEDSUR 08:09
PROVIDERS: ADMIT Hospitalist; ATTEND Hospitalist
DX: K21.00 Gastro-esophageal reflux disease with esophagitis, without bleeding (principal); K29.50 Unspecified chronic gastritis without bleeding; R06.02 Shortness of breath; I12.0 Hypertensive chronic kidney disease with stage 5 chronic kidney disease or end stage renal disease; N18.6 End stage renal disease; Z99.2 Dependence on renal dialysis; E11.22 Type 2 diabetes mellitus with diabetic chronic kidney disease; E11.319 Type 2 diabetes mellitus with unspecified diabetic retinopathy without macular edema; I69.354 Hemiplegia and hemiparesis following cerebral infarction affecting left non-dominant side; I25.10 Atherosclerotic heart disease of native coronary artery without angina pectoris; I34.0 Nonrheumatic mitral (valve) insufficiency; E66.9 Obesity, unspecified; Z68.41 Body mass index [BMI] 40.0-44.9, adult; Z20.822 Contact with and (suspected) exposure to COVID-19; E78.5 Hyperlipidemia, unspecified; F41.9 Anxiety disorder, unspecified; F32.A Depression, unspecified; M89.8X9 Other specified disorders of bone, unspecified site; Z79.4 Long term (current) use of insulin; Z79.899 Other long term (current) drug therapy; Z90.49 Acquired absence of other specified parts of digestive tract; Z98.51 Tubal ligation status; Z96.659 Presence of unspecified artificial knee joint; Z98.42 Cataract extraction status, left eye; Z98.41 Cataract extraction status, right eye; Z96.1 Presence of intraocular lens; Z80.41 Family history of malignant neoplasm of ovary; Z80.1 Family history of malignant neoplasm of trachea, bronchus and lung; Z79.82 Long term (current) use of aspirin
CPT/HCPCS: 96376 ×2; 96361 ×3; 96372; 96375 ×2; 96374; 99285; 36415; 93005; 93308; 88305; 80053 ×2; 89050; 83605; 83690; 84484; 85025 ×2; 85610; 85730; 88312; 88342; 87070; 87205; 87502; 87635; 71046; 71250; 71275; 74176; 43239; G0378 ×4; J2270; J3250; J2405 ×2; A4722 ×6; J2704; C9113; Q9967

== ENCOUNTER 2022-08-12 12:21 | Emergency (ER) | payer MEDICARE, OTHER ==
[2022-08-12 12:32] VITALS: BP 140/60; TEMP 98
--- NOTE | 2022-08-12 13:16 | CT ---
EXAMINATION TYPE: CT brain wo con DATE OF EXAM: 08/12/2022 HISTORY: Fall, hit back of head CT DLP: 1143.4 mGycm. Automated Exposure Control for Dose Reduction was Utilized. TECHNIQUE: CT scan of the head is performed without contrast. COMPARISON: None. FINDINGS: There is no acute intracranial hemorrhage or midline shift identified. There is mild diff use ventricular and sulcal prominence consistent with diffuse age-related cerebral atrophy. There is mild low-attenuation in the periventricular white matter consistent with chronic small vessel ischem ic change. Calvarium is intact. Right globe prosthesis is present. The paranasal sinuses are grossly clear. IMPRESSION: No acute intracranial hemorrhage or midline shift.
--- NOTE | 2022-08-12 13:28 | ED ---
Fall HPI - General Chief Complaint: Fall Stated Complaint: Fall-head injury Time Seen by Provider: 08/12/22 12:34 Source: patient, RN notes reviewed Mode of arrival: ambulatory Limitations: no limitations - History of Present Illness Initial Comments: 56-year-old female presents emergency Department chief complaint of a head injury. Patient was sent in by urgent care after she states that she fell yesterday at the bar states that she felt there is 3 steps with her S4 she fell. Patient states she is legally blind so she has some difficulty. Patient denies any head or neck discomfort patient did have mild headache.She is sent over for CT. Patient x-rays of her ankle, foot were negative. - Related Data Home Medications Medication Instructions Recorded Confirmed Atorvastatin [Lipitor] 20 mg PO DAILY 01/10/22 02/21/22 Atropine Sulfate [Atropine Sulfate 1 applic RIGHT EYE DAILY PRN 01/10/22 02/21/22 1% Ophth Oint] Brimonidine Tartrate/Timolol 1 drop RIGHT EYE BID 01/10/22 02/21/22 [Combigan 0.2%-0.5% Eye Drops] PARoxetine [Paxil] 20 mg PO BID 01/10/22 02/21/22 amLODIPine [Norvasc] 10 mg PO DAILY 01/10/22 02/21/22 calcitrioL [Calcitriol] 0.25 mcg PO MOWEFR 01/10/22 02/21/22 carvediloL [Coreg] 25 mg PO BID 01/10/22 02/21/22 Acetaminophen [Tylenol] 325 mg PO Q4H PRN 02/21/22 02/21/22 Furosemide [Lasix] 80 mg PO BID 02/21/22 02/21/22 Insulin Aspart [NovoLOG Flexpen] See Protocol SQ AC-TID 02/21/22 02/21/22 L.acidoph,Paracasei, B.lactis 1 cap PO Q2D 02/21/22 02/21/22 [Probiotic] Lanthanum Carbonate [Lanthanum 1,000 mg PO AC-TID 02/21/22 02/21/22 Carbonate Chew] Lanthanum Carbonate [Lanthanum 500 mg PO DIRECTED PRN 02/21/22 02/21/22 Carbonate Chew] Previous Rx's Medication Instructions Recorded Pantoprazole [Protonix] 40 mg PO AC-BID #60 tab 02/23/22 Insulin Glargine,Hum.rec.anlog 26 units SQ HS #0 02/24/22 [Lantus Solostar Pen] Metoclopramide [Reglan] 10 mg PO AC-TID #42 tab 02/24/22 Allergies Allergy/AdvReac Type Severity Reaction Status Date / Time Iodinated Contrast Media Allergy Nausea & Verified 08/12/22 12:32 Vomiting Review of Systems ROS Statement: Those systems with pertinent positive or pertinent negative responses have been documented in the HPI. ROS Other: All systems not noted in ROS Statement are negative. Past Medical History Past Medical History: CVA/TIA, Diabetes Mellitus, Dialysis, Eye Disorder, Hyperlipidemia, Hypertension, Renal Disease Additional Past Medical History / Comment(s): NIGHTLY CAPD. BLIND-DIABETIC RETINOPATHY. HX CVA AGE 39-SLIGHT LT SIDED WEAKNESS History of Any Multi-Drug Resistant Organisms: None Reported Past Surgical History: Cholecystectomy, Joint Replacement, Tubal Ligation Additional Past Surgical History / Comment(s): KIDENY BX. PARTIAL KNEE REPLACEMENT (SIDE UNKNOWN). COLONOSCOPY. BILAT CATARACTS REMOVED WITH LENS IMPLANTS. PERITONEAL DIALYSIS CATH. MULTIPLE EYE SURGERIES Past Anesthesia/Blood Transfusion Reactions: No Reported Reaction Past Psychological History: Anxiety Smoking Status: Never smoker Past Alcohol Use History: None Reported Past Drug Use History: None Reported - Past Family History Father Family Medical History: Cancer Additional Family Medical History / Comment(s): Laryngeal cancer. Mother Family Medical History: Cancer Additional Family Medical History / Comment(s): Ovarian cancer General Exam Limitations: physical limitation General appearance: alert, in no apparent distress Head exam: Present: atraumatic, normocephalic, normal inspection Eye exam: Present: PERRL, EOMI. Absent: normal appearance, scleral icterus, conjunctival injection, periorbital swelling ENT exam: Present: normal exam, normal oropharynx, mucous membranes moist Neck exam: Present: normal inspection, full ROM. Absent: tenderness, meningismus, lymphadenopathy Respiratory exam: Present: normal lung sounds bilaterally. Absent: respiratory distress, wheezes, rales, rhonchi, stridor Cardiovascular Exam: Present: regular rate, normal rhythm, normal heart sounds. Absent: systolic murmur, diastolic murmur, rubs, gallop, clicks Neurological exam: Present: alert, oriented X3, CN II-XII intact, reflexes normal. Absent: motor sensory deficit Skin exam: Present: warm, dry, intact, normal color. Absent: rash Course Vital Signs 08/12/22 12:27 Temperature 98.0 F Pulse Rate 77 Respiratory 20 Rate Blood Pressure 140/60 O2 Sat by Pulse 97 Oximetry Medical Decision Making - Medical Decision Making Was pt. sent in by a medical professional or institution (SHAMEKA Jacob, GRADUATE ASSISTANT, urgent care, hospital, or intermediate...) When possible be specific @ -Urgent care sent over Did you speak to anyone other than the patient for history (EMS, parent, family, police, friend...)? What history was obtained from this source @ -No Did you review nursing and triage notes (agree or disagree)? Why? @ -I reviewed and agree with nursing and triage notes Were old charts reviewed (outside hosp., previous admission, EMS record, old EKG, old radiological studies, urgent care reports/EKG's, intermediate records)? Report findings @ -No old charts were reviewed Differential Diagnosis (chest pain, altered mental status, abdominal pain women, abdominal pain men, vaginal bleeding, weakness, fever, dyspnea, syncope, headache, dizziness, GI bleed, back pain, seizure, CVA, palpatations, mental health, musculoskeletal)? @ -Intracranial hemorrhage, skull fracture, acute contusion, closed head injury EKG interpreted by me (3pts min.). @ -None X-rays interpreted by me (1pt min.). @ -None done CT interpreted by me (1pt min.). @ -CT of the brain shows no acute intracranial process. U/S interpreted by me (1pt. min.). @ -None done What testing was considered but not performed or refused? (CT, X-rays, U/S, labs)? Why? @ -None What meds were considered but not given or refused? Why? @ -None Did you discuss the management of the patient with other professionals (professionals i.e. SHAMEKA Jacob, GRADUATE ASSISTANT, lab, RT, psych nurse, social work assistant, salesperson hearing aids, teacher, returning officer, director of casework)? Give summary @ -No Was smoking cessation discussed for >3mins.? @ -No Was critical care preformed (if so, how long)? @ -No Were there social determinants of health that impacted care today? How? (Homelessness, low income, unemployed, alcoholism, drug addiction, transportation, low edu. Level, literacy, decrease access to med. care, group home, rehab)? @ -No Was there de-escalation of care discussed even if they declined (Discuss DNR or withdrawal of care, Hospice)? DNR status @ -No What co-morbidities impacted this encounter? (DM, HTN, Smoking, COPD, CAD, Cancer, CVA, ARF, Chemo, Hep., AIDS, mental health diagnosis, sleep apnea, morbid obesity)? @ -None Was patient admitted / discharged? Hospital course, mention meds given and route, prescriptions, significant lab abnormalities, going to OR and other pertinent info. @ -Discharge patient CT is unremarkable she is not clinically intact will be discharged stable condition. Undiagnosed new problem with uncertain prognosis? @ -No Drug Therapy requiring intensive monitoring for toxicity (Heparin, Nitro, Insulin, Cardizem)? @ -No Were any procedures done? @ -No Diagnosis/symptom? @ -Head Contusion Acute, or Chronic, or Acute on Chronic? @ -Acute Uncomplicated (without systemic symptoms) or Complicated (systemic symptoms)? @ -Uncomplicated Side effects of treatment? @ -No Exacerbation, Progression, or Severe Exacerbation? @ -No Poses a threat to life or bodily function? How? (Chest pain, USA, VT, pneumonia, PE, COPD, DKA, ARF, appy, cholecystitis, CVA, Diverticulitis, Homicidal, Suicidal, threat to staff... and all critical care pts) @ -No Disposition Clinical Impression: Fall, Contusion of head Disposition: HOME SELF-CARE Condition: Stable Instructions (If sedation given, give patient instructions): Head Injury (ED) Additional Instructions: Please return to the Emergency Department if symptoms worsen or any other concerns. Is patient prescribed a controlled substance at d/c from ED?: No Referrals: Candi Buckley MD [Primary Care Provider] - 1-2 days Time of Disposition: 13:28
[2022-08-12 13:41] VITALS: PULSE 72; RESP 18
== END 2022-08-12 13:40 | disposition home or self-care (01) ==
LOC: EC 12:21
DX: S00.93XA Contusion of unspecified part of head, initial encounter (principal); E11.319 Type 2 diabetes mellitus with unspecified diabetic retinopathy without macular edema; I10 Essential (primary) hypertension; E78.5 Hyperlipidemia, unspecified; Z79.4 Long term (current) use of insulin; Z79.899 Other long term (current) drug therapy; Z86.73 Personal history of transient ischemic attack (TIA), and cerebral infarction without residual deficits; Z90.49 Acquired absence of other specified parts of digestive tract; Z99.2 Dependence on renal dialysis; W10.9XXA Fall (on) (from) unspecified stairs and steps, initial encounter
CPT/HCPCS: 70450; 99284